=== PATIENT | male | born 1965 | race African-American/Black ===

== ENCOUNTER 2017-09-30 20:38 | Inpatient (IN) | payer BC ==
[2017-09-30] MEDS: DIAZEPAM 5 MG/ML SYG IM (23:14)
[2017-09-30] MEDS: KETOROLAC 60 MG INJ IM (23:14)
[2017-10-01 00:41] LABS: ADD MAN DIFF? NO
[2017-10-01 00:45] LABS: WHITE BLOOD COUNT 9.1 10^3/ul (4.8-10.8)
[2017-10-01 00:45] LABS: BASOPHILS % 0.3 % (0.0-2.0); EOSINOPHILS # 0.5 10^3/ul (0.0-0.5); HEMATOCRIT 38.5 % (42.0-52.0); HEMOGLOBIN 12.4 g/dl (14.0-18.0); LYMPHOCYTES % 21.6 % (15.0-51.0); MEAN CORPUSCULAR HEMOGLOBIN 30.7 pg (29.0-33.0); MEAN CORPUSCULAR HGB CONC 32.2 g/dl (32.0-37.0); MEAN CORPUSCULAR VOLUME 95.3 fl (82.0-101.0); MEAN PLATELET VOLUME 8.6 fl (7.4-10.4); MONOCYTE # 1.1 10^3/ul (0.3-0.9); NEUTROPHIL # 5.5 10^3/ul (1.6-7.5); NEUTROPHILS % 60.6 % (39.0-77.0); PLATELET COUNT 364 10^3/UL (140-415); RED BLOOD COUNT 4.04 10^6/ul (4.70-6.10); RED CELL DISTRIBUTION WIDTH 12.9 % (11.5-14.5)
[2017-10-01 01:02] LABS: ALANINE AMINOTRANSFERASE 41 IU/L (13-69); ALBUMIN 3.6 g/dl (3.3-4.9); ALBUMIN/GLOBULIN RATIO 0.97; ALKALINE PHOSPHATASE 145 IU/L (42-121); ANION GAP 12 (8-16); ASPARTATE AMINO TRANSFERASE 34 IU/L (15-46); BILIRUBIN,INDIRECT 0.2 mg/dl (0-1.1); BILIRUBIN,TOTAL 0.2 mg/dl (0.2-1.3); BLOOD UREA NITROGEN 11 mg/dl (7-20); CALCIUM 9.1 mg/dl (8.4-10.2); CARBON DIOXIDE 30 mmol/L (21-31); CHLORIDE 104 mmol/L (97-110); CREATININE 0.83 mg/dl (0.61-1.24); GLUCOSE 121 mg/dl (70-220); POTASSIUM 3.9 mmol/L (3.5-5.1); SODIUM 142 mmol/L (135-144); TOTAL PROTEIN 7.3 g/dl (6.1-8.1)
[2017-10-01 01:09] LABS: INR 1.09; PROTIME 14.2 Sec (11.9-14.9); PT RATIO 1.1
[2017-10-01] MEDS ORDERED: ACETAMINOPHEN 325 MG TAB PO (02:00)
[2017-10-01] MEDS: morphine 2 MG INJ IV ×4 (02:27→15:28)
[2017-10-01] MEDS ORDERED: DOCUSATE SODIUM 100 MG CAP PO (07:00)
[2017-10-01] MEDS: ASPIRIN 81 MG TAB PO (08:51)
[2017-10-01] MEDS: FLUOXETINE 20 MG CAP PO (08:51)
[2017-10-01] MEDS: FUROSEMIDE 20 MG TAB PO (08:51)
[2017-10-01] MEDS: QUETIAPINE 25 MG TAB PO ×2 (08:51→21:44)
[2017-10-01] MEDS: LISINOPRIL 5 MG TAB PO (08:51)
[2017-10-01] MEDS: BUDESONIDE (NEB) 0.5MG/2ML AMP INH ×3 (08:55→19:30)
[2017-10-01] MEDS: IBUPROFEN 600 MG TAB PO (17:37)
[2017-10-01] MEDS: HYDROmorphONE 0.5 MG/0.5 ML SYG IV ×3 (18:53→23:40)
[2017-10-01] MEDS: BUPIVACAINE 0.5%/EPI (SDV) 30 ML INJ INJ (20:30)
[2017-10-01] MEDS: BETAMET NA PHOS/AC(6 MG/ML) 5ML INJ INJ (20:30)
[2017-10-01] MEDS: ATORVASTATIN 20 MG TAB PO (21:00)
[2017-10-02] MEDS: HYDROmorphONE 1 MG/ML SYG IV ×5 (06:23→23:19)
[2017-10-02] MEDS: BUDESONIDE (NEB) 0.5MG/2ML AMP INH ×2 (08:30→20:29)
[2017-10-02] MEDS: FLUOXETINE 20 MG CAP PO (08:58)
[2017-10-02] MEDS: QUETIAPINE 25 MG TAB PO ×2 (08:58→21:03)
[2017-10-02] MEDS: LISINOPRIL 5 MG TAB PO (08:58)
[2017-10-02] MEDS: FUROSEMIDE 20 MG TAB PO (08:58)
[2017-10-02] MEDS: ASPIRIN 81 MG TAB PO (08:58)
[2017-10-02 14:24] LABS: ADD MAN DIFF? NO
[2017-10-02 14:27] LABS: BASOPHILS % 0.1 % (0.0-2.0); HEMATOCRIT 37.1 % (42.0-52.0); HEMOGLOBIN 12.2 g/dl (14.0-18.0); LYMPHOCYTES # 1.2 10^3/ul (0.8-2.9); LYMPHOCYTES % 6.9 % (15.0-51.0); MEAN CORPUSCULAR HEMOGLOBIN 30.7 pg (29.0-33.0); MEAN CORPUSCULAR HGB CONC 32.9 g/dl (32.0-37.0); MEAN CORPUSCULAR VOLUME 93.2 fl (82.0-101.0); MEAN PLATELET VOLUME 9.4 fl (7.4-10.4); MONOCYTE # 0.9 10^3/ul (0.3-0.9); MONOCYTES % 5.3 % (0.0-11.0); NEUTROPHILS % 86.8 % (39.0-77.0); PLATELET COUNT 416 10^3/UL (140-415); RED BLOOD COUNT 3.98 10^6/ul (4.70-6.10); RED CELL DISTRIBUTION WIDTH 12.7 % (11.5-14.5)
[2017-10-02 14:27] LABS: WHITE BLOOD COUNT 17.2 10^3/ul (4.8-10.8)
[2017-10-02 14:46] LABS: ANION GAP 14 (8-16); BLOOD UREA NITROGEN 13 mg/dl (7-20); CALCIUM 9.3 mg/dl (8.4-10.2); CARBON DIOXIDE 24 mmol/L (21-31); CHLORIDE 106 mmol/L (97-110); CREATININE 0.81 mg/dl (0.61-1.24); GLUCOSE 180 mg/dl (70-220); POTASSIUM 4.4 mmol/L (3.5-5.1); SODIUM 140 mmol/L (135-144)
[2017-10-02] MEDS: ATORVASTATIN 20 MG TAB PO (21:03)
[2017-10-03] MEDS: HYDROmorphONE 0.5 MG/0.5 ML SYG IV (03:30)
[2017-10-03] MEDS: HYDROmorphONE 1 MG/ML SYG IV ×5 (07:40→23:48)
[2017-10-03] MEDS: BUDESONIDE (NEB) 0.5MG/2ML AMP INH ×2 (08:21→20:11)
[2017-10-03 08:58] LABS: ADD MAN DIFF? NO
[2017-10-03] MEDS: LISINOPRIL 5 MG TAB PO (09:05)
[2017-10-03] MEDS: ASPIRIN 81 MG TAB PO (09:06)
[2017-10-03] MEDS: FUROSEMIDE 20 MG TAB PO (09:06)
[2017-10-03] MEDS: QUETIAPINE 25 MG TAB PO ×2 (09:06→20:27)
[2017-10-03] MEDS: FLUOXETINE 20 MG CAP PO (09:06)
[2017-10-03 09:10] LABS: ABNORMAL IP MESSAGE 1; BASOPHILS % 0.1 % (0.0-2.0); HEMATOCRIT 38.1 % (42.0-52.0); HEMOGLOBIN 12.1 g/dl (14.0-18.0); LYMPHOCYTES # 1.8 10^3/ul (0.8-2.9); LYMPHOCYTES % 7.4 % (15.0-51.0); MEAN CORPUSCULAR HEMOGLOBIN 30.1 pg (29.0-33.0); MEAN CORPUSCULAR HGB CONC 31.8 g/dl (32.0-37.0); MEAN CORPUSCULAR VOLUME 94.8 fl (82.0-101.0); MEAN PLATELET VOLUME 9.6 fl (7.4-10.4); MONOCYTES % 8.4 % (0.0-11.0); NEUTROPHIL # 19.7 10^3/ul (1.6-7.5); NEUTROPHILS % 82.8 % (39.0-77.0); PLATELET COUNT 446 10^3/UL (140-415); POSITIVE DIFF @See below; RED BLOOD COUNT 4.02 10^6/ul (4.70-6.10)
[2017-10-03 09:10] LABS: WHITE BLOOD COUNT 23.8 10^3/ul (4.8-10.8)
[2017-10-03 09:35] LABS: ANION GAP 17 (8-16); BLOOD UREA NITROGEN 14 mg/dl (7-20); CALCIUM 9.1 mg/dl (8.4-10.2); CARBON DIOXIDE 23 mmol/L (21-31); CHLORIDE 106 mmol/L (97-110); CREATININE 0.72 mg/dl (0.61-1.24); GLUCOSE 130 mg/dl (70-220); POTASSIUM 4.6 mmol/L (3.5-5.1); SODIUM 141 mmol/L (135-144)
[2017-10-03] MEDS ORDERED: GABAPENTIN 100 MG CAP PO (12:00)
[2017-10-03] MEDS: GABAPENTIN 100 MG CAP PO ×3 (12:11→23:50)
[2017-10-03] MEDS: DICLOFENAC SODIUM 1% GEL 100 GM TUBE TP ×2 (18:06→20:28)
[2017-10-03] MEDS: LORAZEPAM 0.5 MG TAB PO (18:44)
[2017-10-03] MEDS: DOCUSATE SODIUM 100 MG CAP PO (20:27)
[2017-10-03] MEDS: ATORVASTATIN 20 MG TAB PO (20:28)
[2017-10-04] MEDS: HYDROmorphONE 1 MG/ML SYG IV ×5 (04:56→20:51)
[2017-10-04 05:51] LABS: ADD MAN DIFF? NO
[2017-10-04 05:56] LABS: ABNORMAL IP MESSAGE 1; BASOPHIL # 0.1 10^3/ul (0.0-0.1); BASOPHILS % 0.2 % (0.0-2.0); EOSINOPHILS % 0.1 % (0.0-7.0); HEMATOCRIT 37.9 % (42.0-52.0); LYMPHOCYTES # 2.2 10^3/ul (0.8-2.9); LYMPHOCYTES % 11.1 % (15.0-51.0); MEAN CORPUSCULAR HEMOGLOBIN 30.4 pg (29.0-33.0); MEAN CORPUSCULAR HGB CONC 31.7 g/dl (32.0-37.0); MEAN CORPUSCULAR VOLUME 95.9 fl (82.0-101.0); MEAN PLATELET VOLUME 9.3 fl (7.4-10.4); MONOCYTE # 2.4 10^3/ul (0.3-0.9); MONOCYTES % 11.8 % (0.0-11.0); NEUTROPHIL # 15.2 10^3/ul (1.6-7.5); NEUTROPHILS % 75.8 % (39.0-77.0); PLATELET COUNT 425 10^3/UL (140-415); POSITIVE DIFF @See below; RED BLOOD COUNT 3.95 10^6/ul (4.70-6.10)
[2017-10-04 06:15] LABS: ANION GAP 10 (8-16); BLOOD UREA NITROGEN 14 mg/dl (7-20); CALCIUM 8.7 mg/dl (8.4-10.2); CARBON DIOXIDE 30 mmol/L (21-31); CHLORIDE 104 mmol/L (97-110); CREATININE 0.71 mg/dl (0.61-1.24); GLUCOSE 155 mg/dl (70-220); POTASSIUM 4.1 mmol/L (3.5-5.1); SODIUM 140 mmol/L (135-144)
[2017-10-04] MEDS: GABAPENTIN 100 MG CAP PO ×3 (06:20→17:16)
[2017-10-04] MEDS: BUDESONIDE (NEB) 0.5MG/2ML AMP INH ×2 (08:00→19:07)
[2017-10-04] MEDS: QUETIAPINE 25 MG TAB PO ×2 (08:17→20:14)
[2017-10-04] MEDS: DOCUSATE SODIUM 100 MG CAP PO ×2 (08:17→20:14)
[2017-10-04] MEDS: FLUOXETINE 20 MG CAP PO (08:17)
[2017-10-04] MEDS: ASPIRIN 81 MG TAB PO (08:17)
[2017-10-04] MEDS: DICLOFENAC SODIUM 1% GEL 100 GM TUBE TP ×4 (08:18→20:14)
[2017-10-04] MEDS: LISINOPRIL 5 MG TAB PO (08:18)
[2017-10-04] MEDS: FUROSEMIDE 20 MG TAB PO (08:18)
[2017-10-04] MEDS ORDERED: HYDROCODONE/APAP (5/325) TAB PO (11:30)
[2017-10-04] MEDS: HYDROCODONE/APAP (5/325) TAB PO (19:38)
[2017-10-04] MEDS: ATORVASTATIN 20 MG TAB PO (20:14)
[2017-10-05] MEDS: GABAPENTIN 100 MG CAP PO ×4 (00:39→16:58)
[2017-10-05] MEDS: HYDROmorphONE 1 MG/ML SYG IV ×6 (00:39→20:48)
[2017-10-05] MEDS ORDERED: METHYLPREDNISOLONE (MEDROL) DOSE PACK PO (08:00)
[2017-10-05] MEDS: LISINOPRIL 5 MG TAB PO (08:26)
[2017-10-05] MEDS: ASPIRIN 81 MG TAB PO (08:27)
[2017-10-05] MEDS: QUETIAPINE 25 MG TAB PO ×2 (08:27→20:51)
[2017-10-05] MEDS: HYDROCODONE/APAP (5/325) TAB PO ×2 (08:27→22:43)
[2017-10-05] MEDS: DOCUSATE SODIUM 100 MG CAP PO ×2 (08:27→20:51)
[2017-10-05] MEDS: FUROSEMIDE 20 MG TAB PO (08:27)
[2017-10-05] MEDS: FLUOXETINE 20 MG CAP PO (08:27)
[2017-10-05] MEDS: DICLOFENAC SODIUM 1% GEL 100 GM TUBE TP ×4 (08:28→20:52)
[2017-10-05 09:13] LABS: ADD MAN DIFF? NO
[2017-10-05 09:20] LABS: ABNORMAL IP MESSAGE 1; BASOPHILS % 0.3 % (0.0-2.0); EOSINOPHILS # 0.2 10^3/ul (0.0-0.5); EOSINOPHILS % 1.1 % (0.0-7.0); HEMATOCRIT 38.7 % (42.0-52.0); HEMOGLOBIN 12.4 g/dl (14.0-18.0); LYMPHOCYTES # 2.9 10^3/ul (0.8-2.9); LYMPHOCYTES % 19.3 % (15.0-51.0); MEAN CORPUSCULAR HEMOGLOBIN 30.7 pg (29.0-33.0); MEAN CORPUSCULAR VOLUME 95.8 fl (82.0-101.0); MEAN PLATELET VOLUME 9.1 fl (7.4-10.4); MONOCYTE # 2.1 10^3/ul (0.3-0.9); MONOCYTES % 14.1 % (0.0-11.0); NEUTROPHIL # 9.6 10^3/ul (1.6-7.5); NEUTROPHILS % 64.1 % (39.0-77.0); PLATELET COUNT 397 10^3/UL (140-415); POSITIVE DIFF @See below; RED BLOOD COUNT 4.04 10^6/ul (4.70-6.10); RED CELL DISTRIBUTION WIDTH 13.2 % (11.5-14.5)
[2017-10-05 09:36] LABS: ANION GAP 10 (8-16); BLOOD UREA NITROGEN 15 mg/dl (7-20); CALCIUM 8.9 mg/dl (8.4-10.2); CARBON DIOXIDE 33 mmol/L (21-31); CHLORIDE 102 mmol/L (97-110); CREATININE 0.95 mg/dl (0.61-1.24); GLUCOSE 102 mg/dl (70-220); POTASSIUM 4.6 mmol/L (3.5-5.1); SODIUM 140 mmol/L (135-144)
[2017-10-05] MEDS: BUDESONIDE (NEB) 0.5MG/2ML AMP INH ×2 (10:02→20:04)
[2017-10-05] MEDS: LORAZEPAM 0.5 MG TAB PO (10:32)
[2017-10-05] MEDS: METHYLPREDNISOLONE 4 MG TAB PO (10:33)
[2017-10-05] MEDS: HYDROmorphONE 0.5 MG/0.5 ML SYG IV ×2 (18:46→22:43)
[2017-10-05] MEDS: ATORVASTATIN 20 MG TAB PO (20:51)
[2017-10-06] MEDS: HYDROmorphONE 1 MG/ML SYG IV ×4 (00:56→09:00)
[2017-10-06] MEDS: HYDROmorphONE 0.5 MG/0.5 ML SYG IV (02:53)
[2017-10-06] MEDS: GABAPENTIN 100 MG CAP PO ×5 (05:02→17:01)
[2017-10-06] MEDS: HYDROCODONE/APAP (5/325) TAB PO ×3 (06:35→15:32)
[2017-10-06] MEDS: BUDESONIDE (NEB) 0.5MG/2ML AMP INH ×2 (07:47→20:30)
[2017-10-06] MEDS: ASPIRIN 81 MG TAB PO (08:58)
[2017-10-06] MEDS: FLUOXETINE 20 MG CAP PO (08:58)
[2017-10-06] MEDS: LISINOPRIL 5 MG TAB PO (08:59)
[2017-10-06] MEDS: FUROSEMIDE 20 MG TAB PO (08:59)
[2017-10-06] MEDS: METHYLPREDNISOLONE 4 MG TAB PO ×4 (08:59→20:40)
[2017-10-06] MEDS: DICLOFENAC SODIUM 1% GEL 100 GM TUBE TP ×4 (08:59→20:41)
[2017-10-06] MEDS: QUETIAPINE 25 MG TAB PO ×2 (08:59→20:39)
[2017-10-06] MEDS: DOCUSATE SODIUM 100 MG CAP PO ×2 (09:00→20:39)
[2017-10-06] MEDS: HYDROmorphONE 2 MG/ML SYG IV ×3 (12:58→21:01)
[2017-10-06] MEDS: ATORVASTATIN 20 MG TAB PO (20:39)
[2017-10-07] MEDS: HYDROmorphONE 2 MG/ML SYG IV ×6 (01:02→21:31)
[2017-10-07] MEDS: GABAPENTIN 100 MG CAP PO ×4 (06:12→18:43)
[2017-10-07] MEDS: DICLOFENAC SODIUM 1% GEL 100 GM TUBE TP ×4 (09:06→21:00)
[2017-10-07] MEDS: ASPIRIN 81 MG TAB PO (09:06)
[2017-10-07] MEDS: FLUOXETINE 20 MG CAP PO (09:07)
[2017-10-07] MEDS: LISINOPRIL 5 MG TAB PO (09:07)
[2017-10-07] MEDS: QUETIAPINE 25 MG TAB PO ×2 (09:08→21:29)
[2017-10-07] MEDS: FUROSEMIDE 20 MG TAB PO (09:08)
[2017-10-07] MEDS: DOCUSATE SODIUM 100 MG CAP PO ×2 (09:09→21:30)
[2017-10-07] MEDS: METHYLPREDNISOLONE 4 MG TAB PO ×4 (09:44→21:33)
[2017-10-07] MEDS: BUDESONIDE (NEB) 0.5MG/2ML AMP INH ×2 (11:24→19:48)
[2017-10-07] MEDS: HYDROCODONE/APAP (5/325) TAB PO (15:29)
[2017-10-07] MEDS: ATORVASTATIN 20 MG TAB PO (21:30)
[2017-10-08] MEDS: HYDROmorphONE 2 MG/ML SYG IV ×6 (01:44→21:43)
[2017-10-08 05:39] LABS: ADD MAN DIFF? NO
[2017-10-08 05:43] LABS: WHITE BLOOD COUNT 18.7 10^3/ul (4.8-10.8)
[2017-10-08 05:43] LABS: ABNORMAL IP MESSAGE 1; BASOPHILS % 0.2 % (0.0-2.0); EOSINOPHILS # 0.1 10^3/ul (0.0-0.5); EOSINOPHILS % 0.8 % (0.0-7.0); HEMATOCRIT 40.6 % (42.0-52.0); LYMPHOCYTES # 2.4 10^3/ul (0.8-2.9); MEAN CORPUSCULAR HEMOGLOBIN 30.7 pg (29.0-33.0); MEAN PLATELET VOLUME 9.4 fl (7.4-10.4); MONOCYTE # 1.9 10^3/ul (0.3-0.9); MONOCYTES % 10.1 % (0.0-11.0); NEUTROPHILS % 75.1 % (39.0-77.0); PLATELET COUNT 456 10^3/UL (140-415); POSITIVE DIFF @See below; RED BLOOD COUNT 4.23 10^6/ul (4.70-6.10); RED CELL DISTRIBUTION WIDTH 13.2 % (11.5-14.5)
[2017-10-08] MEDS: GABAPENTIN 100 MG CAP PO ×5 (05:49→23:42)
[2017-10-08 06:25] LABS: ANION GAP 11 (8-16); BLOOD UREA NITROGEN 14 mg/dl (7-20); CALCIUM 8.6 mg/dl (8.4-10.2); CARBON DIOXIDE 31 mmol/L (21-31); CHLORIDE 101 mmol/L (97-110); CREATININE 0.71 mg/dl (0.61-1.24); GLUCOSE 160 mg/dl (70-220); POTASSIUM 4.4 mmol/L (3.5-5.1); SODIUM 139 mmol/L (135-144)
[2017-10-08] MEDS: METHYLPREDNISOLONE 4 MG TAB PO ×3 (08:11→21:42)
[2017-10-08] MEDS: DOCUSATE SODIUM 100 MG CAP PO ×2 (08:19→21:00)
[2017-10-08] MEDS: HYDROCODONE/APAP (5/325) TAB PO ×3 (08:19→23:42)
[2017-10-08] MEDS: ASPIRIN 81 MG TAB PO (08:19)
[2017-10-08] MEDS: FUROSEMIDE 20 MG TAB PO (08:19)
[2017-10-08] MEDS: FLUOXETINE 20 MG CAP PO (08:19)
[2017-10-08] MEDS: LISINOPRIL 5 MG TAB PO (08:19)
[2017-10-08] MEDS: DICLOFENAC SODIUM 1% GEL 100 GM TUBE TP ×4 (08:20→21:00)
[2017-10-08] MEDS: QUETIAPINE 25 MG TAB PO ×2 (08:20→21:42)
[2017-10-08] MEDS: BUDESONIDE (NEB) 0.5MG/2ML AMP INH ×2 (09:04→19:40)
[2017-10-08] MEDS: ATORVASTATIN 20 MG TAB PO (21:42)
[2017-10-09] MEDS: HYDROmorphONE 2 MG/ML SYG IV ×6 (01:46→22:08)
[2017-10-09] MEDS: HYDROCODONE/APAP (5/325) TAB PO ×4 (04:08→21:30)
[2017-10-09] MEDS: GABAPENTIN 100 MG CAP PO ×3 (05:46→17:43)
[2017-10-09] MEDS: DOCUSATE SODIUM 100 MG CAP PO ×2 (08:43→21:30)
[2017-10-09] MEDS: ASPIRIN 81 MG TAB PO (08:43)
[2017-10-09] MEDS: METHYLPREDNISOLONE 4 MG TAB PO ×2 (08:43→21:30)
[2017-10-09] MEDS: FLUOXETINE 20 MG CAP PO (08:43)
[2017-10-09] MEDS: QUETIAPINE 25 MG TAB PO ×2 (08:44→21:30)
[2017-10-09] MEDS: FUROSEMIDE 20 MG TAB PO (08:44)
[2017-10-09] MEDS: LISINOPRIL 5 MG TAB PO (08:44)
[2017-10-09] MEDS: DICLOFENAC SODIUM 1% GEL 100 GM TUBE TP ×4 (08:52→21:00)
[2017-10-09] MEDS: BUDESONIDE (NEB) 0.5MG/2ML AMP INH ×2 (09:30→20:32)
[2017-10-09] MEDS: ATORVASTATIN 20 MG TAB PO (21:29)
[2017-10-10] MEDS: GABAPENTIN 100 MG CAP PO ×4 (00:51→17:48)
[2017-10-10] MEDS: HYDROmorphONE 2 MG/ML SYG IV ×4 (04:12→16:29)
[2017-10-10] MEDS: HYDROCODONE/APAP (5/325) TAB PO (06:18)
[2017-10-10] MEDS: METHYLPREDNISOLONE 4 MG TAB PO (08:25)
[2017-10-10] MEDS: DOCUSATE SODIUM 100 MG CAP PO ×2 (08:25→20:30)
[2017-10-10] MEDS: ASPIRIN 81 MG TAB PO (08:25)
[2017-10-10] MEDS: FLUOXETINE 20 MG CAP PO (08:25)
[2017-10-10] MEDS: LISINOPRIL 5 MG TAB PO (08:26)
[2017-10-10] MEDS: QUETIAPINE 25 MG TAB PO ×2 (08:26→20:30)
[2017-10-10] MEDS: FUROSEMIDE 20 MG TAB PO (08:26)
[2017-10-10] MEDS: DICLOFENAC SODIUM 1% GEL 100 GM TUBE TP ×4 (08:28→20:39)
[2017-10-10] MEDS: BUDESONIDE (NEB) 0.5MG/2ML AMP INH ×2 (09:49→21:06)
[2017-10-10] MEDS: ATORVASTATIN 20 MG TAB PO (20:30)
[2017-10-10] MEDS: HYDROmorphONE 2 MG TAB PO (20:36)
[2017-10-10] MEDS: LORAZEPAM 0.5 MG TAB PO (23:29)
[2017-10-11] MEDS: GABAPENTIN 100 MG CAP PO ×4 (00:14→17:34)
[2017-10-11] MEDS: QUETIAPINE 25 MG TAB PO ×3 (08:45→20:42)
[2017-10-11] MEDS: FLUOXETINE 20 MG CAP PO ×2 (08:45→09:27)
[2017-10-11] MEDS: DOCUSATE SODIUM 100 MG CAP PO ×3 (08:46→20:42)
[2017-10-11] MEDS: LISINOPRIL 5 MG TAB PO ×2 (08:46→09:28)
[2017-10-11] MEDS: ASPIRIN 81 MG TAB PO ×2 (08:46→09:27)
[2017-10-11] MEDS: FUROSEMIDE 20 MG TAB PO ×2 (08:46→09:28)
[2017-10-11] MEDS: BUDESONIDE (NEB) 0.5MG/2ML AMP INH ×2 (08:55→20:36)
[2017-10-11] MEDS: DICLOFENAC SODIUM 1% GEL 100 GM TUBE TP ×4 (09:28→20:50)
[2017-10-11] MEDS: NITROGLYCERIN (SL) 0.4 MG TAB SL (11:24)
[2017-10-11 13:55] LABS: TROPONIN-I 0.021 ng/ml (0.000-0.120)
[2017-10-11] MEDS: HYDROmorphONE 2 MG TAB PO ×2 (15:09→23:29)
[2017-10-11 19:20] LABS: TROPONIN-I < 0.012 ng/ml (0.000-0.120)
[2017-10-11] MEDS: ATORVASTATIN 20 MG TAB PO (20:42)
[2017-10-12] MEDS: HYDROCODONE/APAP (5/325) TAB PO ×3 (01:28→20:35)
[2017-10-12] MEDS: LORAZEPAM 0.5 MG TAB PO ×2 (02:47→21:54)
[2017-10-12] MEDS: GABAPENTIN 100 MG CAP PO ×4 (06:00→17:05)
[2017-10-12] MEDS: BUDESONIDE (NEB) 0.5MG/2ML AMP INH ×2 (08:44→19:45)
[2017-10-12] MEDS: ASPIRIN 81 MG TAB PO (08:49)
[2017-10-12] MEDS: QUETIAPINE 25 MG TAB PO ×2 (08:49→20:36)
[2017-10-12] MEDS: LISINOPRIL 5 MG TAB PO (08:49)
[2017-10-12] MEDS: FUROSEMIDE 20 MG TAB PO (08:49)
[2017-10-12] MEDS: FLUOXETINE 20 MG CAP PO (08:49)
[2017-10-12] MEDS: DOCUSATE SODIUM 100 MG CAP PO ×2 (08:49→20:35)
[2017-10-12] MEDS: HYDROmorphONE 2 MG TAB PO ×3 (08:50→21:23)
[2017-10-12] MEDS: DICLOFENAC SODIUM 1% GEL 100 GM TUBE TP ×4 (14:00→21:00)
[2017-10-12 14:13] LABS: ADD MAN DIFF? NO
[2017-10-12 14:15] LABS: WHITE BLOOD COUNT 10.6 10^3/ul (4.8-10.8)
[2017-10-12 14:15] LABS: BASOPHILS % 0.1 % (0.0-2.0); EOSINOPHILS # 0.3 10^3/ul (0.0-0.5); EOSINOPHILS % 2.6 % (0.0-7.0); HEMATOCRIT 41.7 % (42.0-52.0); HEMOGLOBIN 13.4 g/dl (14.0-18.0); LYMPHOCYTES # 2.6 10^3/ul (0.8-2.9); LYMPHOCYTES % 24.2 % (15.0-51.0); MEAN CORPUSCULAR HGB CONC 32.1 g/dl (32.0-37.0); MEAN CORPUSCULAR VOLUME 96.5 fl (82.0-101.0); MEAN PLATELET VOLUME 8.9 fl (7.4-10.4); MONOCYTE # 1.1 10^3/ul (0.3-0.9); MONOCYTES % 10.8 % (0.0-11.0); NEUTROPHIL # 6.5 10^3/ul (1.6-7.5); NEUTROPHILS % 61.4 % (39.0-77.0); PLATELET COUNT 457 10^3/UL (140-415); RED BLOOD COUNT 4.32 10^6/ul (4.70-6.10); RED CELL DISTRIBUTION WIDTH 13.3 % (11.5-14.5)
[2017-10-12 14:36] LABS: ANION GAP 14 (8-16); BLOOD UREA NITROGEN 19 mg/dl (7-20); CALCIUM 8.9 mg/dl (8.4-10.2); CARBON DIOXIDE 30 mmol/L (21-31); CHLORIDE 102 mmol/L (97-110); CREATININE 1.04 mg/dl (0.61-1.24); GLUCOSE 132 mg/dl (70-220); POTASSIUM 4.7 mmol/L (3.5-5.1); SODIUM 141 mmol/L (135-144)
[2017-10-12 14:37] LABS: CHOLESTEROL 162 mg/dl (100-200)
[2017-10-12 14:37] LABS: HDL CHOLESTEROL 53 mg/dl (28-71); LDL CHOLESTEROL,CALCULATED 50 mg/dl; TRIGLYCERIDES 297 mg/dl (0-149)
[2017-10-12 14:47] LABS: TROPONIN-I < 0.012 ng/ml (0.000-0.120)
[2017-10-12] MEDS: ATORVASTATIN 20 MG TAB PO (20:35)
[2017-10-13] MEDS: HYDROCODONE/APAP (5/325) TAB PO ×3 (00:31→17:37)
[2017-10-13] MEDS: GABAPENTIN 100 MG CAP PO ×5 (00:31→17:36)
[2017-10-13] MEDS: HYDROmorphONE 2 MG TAB PO ×4 (06:19→21:26)
[2017-10-13] MEDS: LISINOPRIL 5 MG TAB PO (08:52)
[2017-10-13] MEDS: ASPIRIN 81 MG TAB PO (08:52)
[2017-10-13] MEDS: FLUOXETINE 20 MG CAP PO (08:52)
[2017-10-13] MEDS: QUETIAPINE 25 MG TAB PO ×2 (08:52→21:28)
[2017-10-13] MEDS: DICLOFENAC SODIUM 1% GEL 100 GM TUBE TP ×4 (08:53→21:26)
[2017-10-13] MEDS: DOCUSATE SODIUM 100 MG CAP PO ×2 (08:53→21:29)
[2017-10-13] MEDS: FUROSEMIDE 20 MG TAB PO (08:53)
[2017-10-13] MEDS: BUDESONIDE (NEB) 0.5MG/2ML AMP INH ×2 (09:00→20:57)
[2017-10-13] MEDS ORDERED: VITAMIN A & D 5 GM OINT PACKET TOP (12:35)
[2017-10-13] MEDS: AL HYDROX/MG HYDROX/SIMETH 30 ML CUP PO (17:39)
[2017-10-13] MEDS: ATORVASTATIN 20 MG TAB PO (21:29)
[2017-10-14] MEDS: HYDROmorphONE 2 MG TAB PO ×5 (01:29→21:09)
[2017-10-14] MEDS: GABAPENTIN 100 MG CAP PO ×5 (05:39→23:53)
[2017-10-14 06:34] LABS: ADD MAN DIFF? NO
[2017-10-14 06:38] LABS: WHITE BLOOD COUNT 10.3 10^3/ul (4.8-10.8)
[2017-10-14 06:38] LABS: BASOPHILS % 0.1 % (0.0-2.0); EOSINOPHILS # 0.3 10^3/ul (0.0-0.5); EOSINOPHILS % 3.1 % (0.0-7.0); HEMATOCRIT 36.8 % (42.0-52.0); HEMOGLOBIN 11.7 g/dl (14.0-18.0); LYMPHOCYTES # 1.9 10^3/ul (0.8-2.9); LYMPHOCYTES % 18.6 % (15.0-51.0); MEAN CORPUSCULAR HEMOGLOBIN 30.3 pg (29.0-33.0); MEAN CORPUSCULAR HGB CONC 31.8 g/dl (32.0-37.0); MEAN CORPUSCULAR VOLUME 95.3 fl (82.0-101.0); MEAN PLATELET VOLUME 9.5 fl (7.4-10.4); MONOCYTE # 1.1 10^3/ul (0.3-0.9); MONOCYTES % 10.9 % (0.0-11.0); NEUTROPHIL # 6.9 10^3/ul (1.6-7.5); NEUTROPHILS % 66.6 % (39.0-77.0); PLATELET COUNT 383 10^3/UL (140-415); RED BLOOD COUNT 3.86 10^6/ul (4.70-6.10); RED CELL DISTRIBUTION WIDTH 13.3 % (11.5-14.5)
[2017-10-14 07:13] LABS: ANION GAP 13 (8-16); BLOOD UREA NITROGEN 16 mg/dl (7-20); CALCIUM 8.3 mg/dl (8.4-10.2); CARBON DIOXIDE 29 mmol/L (21-31); CHLORIDE 104 mmol/L (97-110); CREATININE 0.86 mg/dl (0.61-1.24); GLUCOSE 133 mg/dl (70-220); SODIUM 142 mmol/L (135-144)
[2017-10-14] MEDS: BUDESONIDE (NEB) 0.5MG/2ML AMP INH ×2 (08:05→20:32)
[2017-10-14] MEDS: HYDROCODONE/APAP (5/325) TAB PO ×4 (08:57→23:53)
[2017-10-14] MEDS: FLUOXETINE 20 MG CAP PO (08:57)
[2017-10-14] MEDS: ASPIRIN 81 MG TAB PO (08:57)
[2017-10-14] MEDS: DICLOFENAC SODIUM 1% GEL 100 GM TUBE TP ×4 (08:57→20:23)
[2017-10-14] MEDS: DOCUSATE SODIUM 100 MG CAP PO ×2 (09:00→20:23)
[2017-10-14] MEDS: QUETIAPINE 25 MG TAB PO ×2 (09:01→20:23)
[2017-10-14] MEDS: FUROSEMIDE 20 MG TAB PO (09:01)
[2017-10-14] MEDS: LISINOPRIL 5 MG TAB PO (09:01)
[2017-10-14] MEDS: ATORVASTATIN 20 MG TAB PO (20:23)
[2017-10-15 05:26] LABS: ADD MAN DIFF? NO
[2017-10-15 05:28] LABS: WHITE BLOOD COUNT 8.7 10^3/ul (4.8-10.8)
[2017-10-15 05:28] LABS: BASOPHILS % 0.1 % (0.0-2.0); EOSINOPHILS # 0.3 10^3/ul (0.0-0.5); EOSINOPHILS % 3.1 % (0.0-7.0); HEMATOCRIT 36.6 % (42.0-52.0); HEMOGLOBIN 11.7 g/dl (14.0-18.0); LYMPHOCYTES # 1.7 10^3/ul (0.8-2.9); LYMPHOCYTES % 19.3 % (15.0-51.0); MEAN CORPUSCULAR HEMOGLOBIN 30.6 pg (29.0-33.0); MEAN CORPUSCULAR VOLUME 95.8 fl (82.0-101.0); MONOCYTES % 11.7 % (0.0-11.0); NEUTROPHIL # 5.6 10^3/ul (1.6-7.5); NEUTROPHILS % 65.1 % (39.0-77.0); PLATELET COUNT 363 10^3/UL (140-415); RED BLOOD COUNT 3.82 10^6/ul (4.70-6.10); RED CELL DISTRIBUTION WIDTH 13.2 % (11.5-14.5)
[2017-10-15] MEDS: GABAPENTIN 100 MG CAP PO ×3 (06:00→17:09)
[2017-10-15 06:19] LABS: ANION GAP 9 (8-16); BLOOD UREA NITROGEN 14 mg/dl (7-20); CALCIUM 8.8 mg/dl (8.4-10.2); CARBON DIOXIDE 33 mmol/L (21-31); CHLORIDE 102 mmol/L (97-110); GLUCOSE 115 mg/dl (70-220); POTASSIUM 4.6 mmol/L (3.5-5.1); SODIUM 139 mmol/L (135-144)
[2017-10-15] MEDS: HYDROmorphONE 2 MG TAB PO ×3 (06:35→20:37)
[2017-10-15] MEDS: ASPIRIN 81 MG TAB PO (08:27)
[2017-10-15] MEDS: FLUOXETINE 20 MG CAP PO (08:27)
[2017-10-15] MEDS: DOCUSATE SODIUM 100 MG CAP PO ×2 (08:27→20:37)
[2017-10-15] MEDS: QUETIAPINE 25 MG TAB PO ×2 (08:27→20:37)
[2017-10-15] MEDS: DICLOFENAC SODIUM 1% GEL 100 GM TUBE TP ×4 (08:28→20:37)
[2017-10-15] MEDS: LISINOPRIL 5 MG TAB PO (08:28)
[2017-10-15] MEDS: FUROSEMIDE 20 MG TAB PO (08:28)
[2017-10-15] MEDS: HYDROCODONE/APAP (5/325) TAB PO (08:34)
[2017-10-15] MEDS: BUDESONIDE (NEB) 0.5MG/2ML AMP INH ×2 (09:24→20:11)
[2017-10-15] MEDS: LORAZEPAM 0.5 MG TAB PO (14:44)
[2017-10-15] MEDS: ATORVASTATIN 20 MG TAB PO (20:37)
[2017-10-16] MEDS: GABAPENTIN 100 MG CAP PO ×5 (00:08→23:47)
[2017-10-16] MEDS: HYDROmorphONE 1 MG/ML SYG IV ×8 (00:08→23:47)
[2017-10-16] MEDS: ASPIRIN 81 MG TAB PO (08:44)
[2017-10-16] MEDS: QUETIAPINE 25 MG TAB PO ×2 (08:44→20:36)
[2017-10-16] MEDS: DOCUSATE SODIUM 100 MG CAP PO ×2 (08:45→20:36)
[2017-10-16] MEDS: FLUOXETINE 20 MG CAP PO (08:45)
[2017-10-16] MEDS: LISINOPRIL 5 MG TAB PO (08:45)
[2017-10-16] MEDS: DICLOFENAC SODIUM 1% GEL 100 GM TUBE TP ×4 (08:45→20:37)
[2017-10-16] MEDS: FUROSEMIDE 20 MG TAB PO (08:45)
[2017-10-16] MEDS: BUDESONIDE (NEB) 0.5MG/2ML AMP INH ×2 (08:50→20:14)
[2017-10-16 16:43] LABS: B-TYPE NATRIURETIC PEPTIDE 40 PG/ML (0-125)
[2017-10-16] MEDS: ATORVASTATIN 20 MG TAB PO (20:36)
[2017-10-16] MEDS: LORAZEPAM 0.5 MG TAB PO (22:18)
[2017-10-17] MEDS: HYDROmorphONE 1 MG/ML SYG IV ×5 (03:48→20:08)
[2017-10-17] MEDS: GABAPENTIN 100 MG CAP PO ×3 (05:04→17:54)
[2017-10-17 05:49] LABS: ADD MAN DIFF? NO
[2017-10-17 06:03] LABS: WHITE BLOOD COUNT 9.3 10^3/ul (4.8-10.8)
[2017-10-17 06:03] LABS: BASOPHILS % 0.2 % (0.0-2.0); EOSINOPHILS # 0.3 10^3/ul (0.0-0.5); EOSINOPHILS % 2.7 % (0.0-7.0); HEMOGLOBIN 11.8 g/dl (14.0-18.0); LYMPHOCYTES % 21.3 % (15.0-51.0); MEAN CORPUSCULAR HEMOGLOBIN 30.6 pg (29.0-33.0); MEAN CORPUSCULAR HGB CONC 31.9 g/dl (32.0-37.0); MEAN CORPUSCULAR VOLUME 95.9 fl (82.0-101.0); MEAN PLATELET VOLUME 9.4 fl (7.4-10.4); MONOCYTE # 1.3 10^3/ul (0.3-0.9); MONOCYTES % 13.6 % (0.0-11.0); NEUTROPHIL # 5.7 10^3/ul (1.6-7.5); NEUTROPHILS % 61.7 % (39.0-77.0); PLATELET COUNT 348 10^3/UL (140-415); RED BLOOD COUNT 3.86 10^6/ul (4.70-6.10); RED CELL DISTRIBUTION WIDTH 13.1 % (11.5-14.5)
[2017-10-17 06:13] LABS: ANION GAP 11 (8-16); BLOOD UREA NITROGEN 11 mg/dl (7-20); CARBON DIOXIDE 28 mmol/L (21-31); CHLORIDE 105 mmol/L (97-110); CREATININE 0.78 mg/dl (0.61-1.24); GLUCOSE 127 mg/dl (70-220); POTASSIUM 4.2 mmol/L (3.5-5.1); SODIUM 140 mmol/L (135-144)
[2017-10-17] MEDS: BUDESONIDE (NEB) 0.5MG/2ML AMP INH ×2 (08:21→20:08)
[2017-10-17] MEDS: ASPIRIN 81 MG TAB PO (08:38)
[2017-10-17] MEDS: FLUOXETINE 20 MG CAP PO (08:38)
[2017-10-17] MEDS: DOCUSATE SODIUM 100 MG CAP PO ×2 (08:39→20:53)
[2017-10-17] MEDS: FUROSEMIDE 20 MG TAB PO (08:39)
[2017-10-17] MEDS: LISINOPRIL 5 MG TAB PO (08:39)
[2017-10-17] MEDS: QUETIAPINE 25 MG TAB PO ×2 (08:40→20:53)
[2017-10-17] MEDS: LORAZEPAM 0.5 MG TAB PO ×2 (08:44→21:05)
[2017-10-17] MEDS: DICLOFENAC SODIUM 1% GEL 100 GM TUBE TP ×4 (09:00→20:55)
[2017-10-17] MEDS: HYDROCODONE/APAP (5/325) TAB PO (17:29)
[2017-10-17] MEDS: ATORVASTATIN 20 MG TAB PO ×2 (20:53→21:00)
[2017-10-17] MEDS: ALBUTEROL HFA 8 GM INHALER INH (21:03)
[2017-10-18] MEDS: HYDROmorphONE 1 MG/ML SYG IV ×6 (00:09→20:19)
[2017-10-18] MEDS: GABAPENTIN 100 MG CAP PO ×4 (05:17→17:53)
[2017-10-18] MEDS: HYDROCODONE/APAP (5/325) TAB PO ×2 (05:20→13:59)
[2017-10-18 06:12] LABS: ADD MAN DIFF? NO
[2017-10-18 06:13] LABS: BASOPHILS % 0.2 % (0.0-2.0); EOSINOPHILS # 0.3 10^3/ul (0.0-0.5); HEMATOCRIT 36.6 % (42.0-52.0); HEMOGLOBIN 11.5 g/dl (14.0-18.0); LYMPHOCYTES # 1.8 10^3/ul (0.8-2.9); LYMPHOCYTES % 18.3 % (15.0-51.0); MEAN CORPUSCULAR HEMOGLOBIN 30.3 pg (29.0-33.0); MEAN CORPUSCULAR HGB CONC 31.4 g/dl (32.0-37.0); MEAN CORPUSCULAR VOLUME 96.3 fl (82.0-101.0); MEAN PLATELET VOLUME 9.3 fl (7.4-10.4); MONOCYTE # 1.3 10^3/ul (0.3-0.9); NEUTROPHIL # 6.5 10^3/ul (1.6-7.5); PLATELET COUNT 365 10^3/UL (140-415); RED CELL DISTRIBUTION WIDTH 13.1 % (11.5-14.5)
[2017-10-18 06:58] LABS: ANION GAP 11 (8-16); BLOOD UREA NITROGEN 12 mg/dl (7-20); CARBON DIOXIDE 30 mmol/L (21-31); CHLORIDE 103 mmol/L (97-110); CREATININE 0.82 mg/dl (0.61-1.24); GLUCOSE 168 mg/dl (70-220); POTASSIUM 4.3 mmol/L (3.5-5.1); SODIUM 140 mmol/L (135-144)
[2017-10-18] MEDS: ASPIRIN 81 MG TAB PO (08:10)
[2017-10-18] MEDS: LISINOPRIL 5 MG TAB PO (08:11)
[2017-10-18] MEDS: FUROSEMIDE 20 MG TAB PO (08:11)
[2017-10-18] MEDS: LORAZEPAM 0.5 MG TAB PO (08:11)
[2017-10-18] MEDS: FLUOXETINE 20 MG CAP PO (08:11)
[2017-10-18] MEDS: DOCUSATE SODIUM 100 MG CAP PO ×2 (08:11→20:22)
[2017-10-18] MEDS: QUETIAPINE 25 MG TAB PO ×2 (08:15→20:23)
[2017-10-18] MEDS: DICLOFENAC SODIUM 1% GEL 100 GM TUBE TP ×4 (09:00→20:23)
[2017-10-18] MEDS: BUDESONIDE (NEB) 0.5MG/2ML AMP INH ×2 (09:02→19:31)
[2017-10-18] MEDS: ATORVASTATIN 20 MG TAB PO (20:22)
[2017-10-19] MEDS: HYDROmorphONE 1 MG/ML SYG IV ×6 (00:19→20:33)
[2017-10-19] MEDS: GABAPENTIN 100 MG CAP PO ×5 (05:42→23:20)
[2017-10-19] MEDS: BUDESONIDE (NEB) 0.5MG/2ML AMP INH ×2 (07:53→19:58)
[2017-10-19] MEDS: ASPIRIN 81 MG TAB PO (09:12)
[2017-10-19] MEDS: LORAZEPAM 0.5 MG TAB PO (09:12)
[2017-10-19] MEDS: FLUOXETINE 20 MG CAP PO (09:13)
[2017-10-19] MEDS: FUROSEMIDE 20 MG TAB PO (09:13)
[2017-10-19] MEDS: DOCUSATE SODIUM 100 MG CAP PO ×2 (09:13→20:32)
[2017-10-19] MEDS: QUETIAPINE 25 MG TAB PO ×2 (09:13→20:32)
[2017-10-19] MEDS: LISINOPRIL 5 MG TAB PO (09:14)
[2017-10-19] MEDS: DICLOFENAC SODIUM 1% GEL 100 GM TUBE TP ×4 (09:14→20:32)
[2017-10-19] MEDS: ATORVASTATIN 20 MG TAB PO (20:32)
[2017-10-19] MEDS: HYDROCODONE/APAP (5/325) TAB PO (23:20)
[2017-10-20] MEDS: HYDROmorphONE 1 MG/ML SYG IV ×6 (00:55→21:19)
[2017-10-20] MEDS: GABAPENTIN 100 MG CAP PO ×3 (05:00→17:17)
[2017-10-20] MEDS: BUDESONIDE (NEB) 0.5MG/2ML AMP INH ×2 (08:05→20:21)
[2017-10-20] MEDS: FLUOXETINE 20 MG CAP PO (09:04)
[2017-10-20] MEDS: FUROSEMIDE 20 MG TAB PO (09:04)
[2017-10-20] MEDS: QUETIAPINE 25 MG TAB PO ×2 (09:04→21:22)
[2017-10-20] MEDS: DOCUSATE SODIUM 100 MG CAP PO ×2 (09:04→21:00)
[2017-10-20] MEDS: ASPIRIN 81 MG TAB PO (09:04)
[2017-10-20] MEDS: LISINOPRIL 5 MG TAB PO (09:05)
[2017-10-20] MEDS: DICLOFENAC SODIUM 1% GEL 100 GM TUBE TP ×4 (09:05→21:00)
[2017-10-20] MEDS ORDERED: HYDROmorphONE 1 MG/ML SYG IM (17:00)
[2017-10-20] MEDS: ATORVASTATIN 20 MG TAB PO (21:22)
[2017-10-20] MEDS: HYDROCODONE/APAP (5/325) TAB PO (22:24)
[2017-10-21] MEDS: GABAPENTIN 100 MG CAP PO ×5 (00:44→20:19)
[2017-10-21] MEDS: HYDROmorphONE 1 MG/ML SYG IV ×6 (01:51→23:16)
[2017-10-21] MEDS: QUETIAPINE 25 MG TAB PO ×2 (08:22→20:19)
[2017-10-21] MEDS: FLUOXETINE 20 MG CAP PO (08:22)
[2017-10-21] MEDS: DOCUSATE SODIUM 100 MG CAP PO ×2 (08:22→20:19)
[2017-10-21] MEDS: ASPIRIN 81 MG TAB PO (08:22)
[2017-10-21] MEDS: LISINOPRIL 5 MG TAB PO (08:23)
[2017-10-21] MEDS: FUROSEMIDE 20 MG TAB PO (08:23)
[2017-10-21] MEDS: DICLOFENAC SODIUM 1% GEL 100 GM TUBE TP ×4 (08:25→20:19)
[2017-10-21] MEDS: BUDESONIDE (NEB) 0.5MG/2ML AMP INH ×2 (08:55→20:27)
[2017-10-21] MEDS: ATORVASTATIN 20 MG TAB PO (20:19)
[2017-10-22] MEDS: LORAZEPAM 0.5 MG TAB PO ×2 (01:10→21:08)
[2017-10-22] MEDS: HYDROCODONE/APAP (5/325) TAB PO (02:03)
[2017-10-22] MEDS: HYDROmorphONE 1 MG/ML SYG IV ×6 (03:17→23:09)
[2017-10-22] MEDS: GABAPENTIN 100 MG CAP PO ×3 (07:19→17:49)
[2017-10-22] MEDS: FUROSEMIDE 20 MG TAB PO (08:36)
[2017-10-22] MEDS: FLUOXETINE 20 MG CAP PO (08:36)
[2017-10-22] MEDS: DOCUSATE SODIUM 100 MG CAP PO ×2 (08:36→21:08)
[2017-10-22] MEDS: ASPIRIN 81 MG TAB PO (08:36)
[2017-10-22] MEDS: LISINOPRIL 5 MG TAB PO (08:36)
[2017-10-22] MEDS: BUDESONIDE (NEB) 0.5MG/2ML AMP INH ×2 (08:36→20:43)
[2017-10-22] MEDS: QUETIAPINE 25 MG TAB PO ×2 (08:37→21:08)
[2017-10-22] MEDS: DICLOFENAC SODIUM 1% GEL 100 GM TUBE TP ×4 (09:00→21:08)
[2017-10-22] MEDS: ATORVASTATIN 20 MG TAB PO (21:08)
[2017-10-23] MEDS: HYDROmorphONE 1 MG/ML SYG IV ×5 (03:43→23:29)
[2017-10-23] MEDS: GABAPENTIN 100 MG CAP PO ×5 (06:00→23:30)
[2017-10-23] MEDS: ASPIRIN 81 MG TAB PO (08:08)
[2017-10-23] MEDS: DOCUSATE SODIUM 100 MG CAP PO ×2 (08:08→21:25)
[2017-10-23] MEDS: QUETIAPINE 25 MG TAB PO ×2 (08:09→21:25)
[2017-10-23] MEDS: FUROSEMIDE 20 MG TAB PO (08:09)
[2017-10-23] MEDS: DICLOFENAC SODIUM 1% GEL 100 GM TUBE TP ×4 (08:09→21:26)
[2017-10-23] MEDS: FLUOXETINE 20 MG CAP PO (08:09)
[2017-10-23] MEDS: LISINOPRIL 5 MG TAB PO (08:10)
[2017-10-23] MEDS: BUDESONIDE (NEB) 0.5MG/2ML AMP INH ×2 (08:39→20:43)
[2017-10-23] MEDS: ALBUTEROL HFA 8 GM INHALER INH (09:05)
[2017-10-23] MEDS: ATORVASTATIN 20 MG TAB PO (21:00)
[2017-10-23] MEDS: AL HYDROX/MG HYDROX/SIMETH 30 ML CUP PO (21:34)
[2017-10-24] MEDS: HYDROmorphONE 1 MG/ML SYG IV ×2 (05:21→11:39)
[2017-10-24] MEDS: GABAPENTIN 100 MG CAP PO ×3 (05:22→17:22)
[2017-10-24] MEDS: PANTOPRAZOLE (EC) 40 MG TAB PO (05:22)
[2017-10-24] MEDS: ASPIRIN 81 MG TAB PO (08:54)
[2017-10-24] MEDS: DOCUSATE SODIUM 100 MG CAP PO ×2 (08:54→21:40)
[2017-10-24] MEDS: FLUOXETINE 20 MG CAP PO (08:54)
[2017-10-24] MEDS: QUETIAPINE 25 MG TAB PO ×2 (08:54→21:39)
[2017-10-24] MEDS: LISINOPRIL 5 MG TAB PO (08:55)
[2017-10-24] MEDS: DICLOFENAC SODIUM 1% GEL 100 GM TUBE TP ×4 (08:55→21:00)
[2017-10-24] MEDS: FUROSEMIDE 20 MG TAB PO (08:55)
[2017-10-24] MEDS: BUDESONIDE (NEB) 0.5MG/2ML AMP INH ×2 (10:18→19:30)
[2017-10-24] MEDS: LORAZEPAM 2 MG INJ IV (18:06)
[2017-10-24] MEDS: ATORVASTATIN 20 MG TAB PO (21:41)
[2017-10-24] MEDS: HYDROmorphONE 2 MG TAB PO (22:26)
[2017-10-25] MEDS: LORAZEPAM 2 MG INJ IV ×3 (00:33→18:05)
[2017-10-25] MEDS: HYDROmorphONE 2 MG TAB PO (04:51)
[2017-10-25] MEDS: PANTOPRAZOLE (EC) 40 MG TAB PO (06:51)
[2017-10-25] MEDS: GABAPENTIN 100 MG CAP PO ×5 (06:51→23:09)
[2017-10-25] MEDS: HYDROCODONE/APAP (5/325) TAB PO ×2 (07:45→23:29)
[2017-10-25] MEDS: BUDESONIDE (NEB) 0.5MG/2ML AMP INH ×3 (08:40→21:55)
[2017-10-25] MEDS: DICLOFENAC SODIUM 1% GEL 100 GM TUBE TP ×4 (09:00→20:51)
[2017-10-25] MEDS: FLUOXETINE 20 MG CAP PO (09:00)
[2017-10-25] MEDS: REGADENOSON 0.4 MG/5 ML SYG (11:07)
[2017-10-25] MEDS: ASPIRIN 81 MG TAB PO (12:40)
[2017-10-25] MEDS: DOCUSATE SODIUM 100 MG CAP PO ×2 (12:40→20:48)
[2017-10-25] MEDS: LISINOPRIL 5 MG TAB PO (12:40)
[2017-10-25] MEDS: QUETIAPINE 25 MG TAB PO ×2 (12:41→20:47)
[2017-10-25] MEDS: FUROSEMIDE 20 MG TAB PO (12:41)
[2017-10-25] MEDS: ATORVASTATIN 20 MG TAB PO (20:47)
[2017-10-26] MEDS: LORAZEPAM 2 MG INJ IV (01:04)
[2017-10-26] MEDS: PANTOPRAZOLE (EC) 40 MG TAB PO ×2 (05:27→11:47)
[2017-10-26] MEDS: GABAPENTIN 100 MG CAP PO ×4 (05:27→23:10)
[2017-10-26] MEDS: DOCUSATE SODIUM 100 MG CAP PO ×2 (08:19→20:08)
[2017-10-26] MEDS: LISINOPRIL 5 MG TAB PO (08:19)
[2017-10-26] MEDS: QUETIAPINE 25 MG TAB PO ×2 (08:19→20:08)
[2017-10-26] MEDS: ASPIRIN 81 MG TAB PO (08:19)
[2017-10-26] MEDS: FUROSEMIDE 20 MG TAB PO (08:20)
[2017-10-26] MEDS: FLUOXETINE 20 MG CAP PO (08:20)
[2017-10-26] MEDS: DICLOFENAC SODIUM 1% GEL 100 GM TUBE TP ×4 (08:20→20:09)
[2017-10-26] MEDS: LORAZEPAM 0.5 MG TAB PO (11:47)
[2017-10-26] MEDS: HYDROmorphONE 2 MG TAB PO ×2 (17:14→23:10)
[2017-10-26] MEDS: ATORVASTATIN 20 MG TAB PO (20:08)
[2017-10-26] MEDS: HYDROCODONE/APAP (5/325) TAB PO (20:45)
[2017-10-26] MEDS: BUDESONIDE (NEB) 0.5MG/2ML AMP INH (21:23)
[2017-10-27] MEDS: HYDROCODONE/APAP (5/325) TAB PO ×3 (01:26→22:39)
[2017-10-27] MEDS: PANTOPRAZOLE (EC) 40 MG TAB PO ×2 (06:00)
[2017-10-27] MEDS: GABAPENTIN 100 MG CAP PO ×3 (06:00→17:51)
[2017-10-27] MEDS: ASPIRIN 81 MG TAB PO (08:20)
[2017-10-27] MEDS: FLUOXETINE 20 MG CAP PO (08:20)
[2017-10-27] MEDS: QUETIAPINE 25 MG TAB PO ×2 (08:20→20:10)
[2017-10-27] MEDS: DOCUSATE SODIUM 100 MG CAP PO ×2 (08:21→20:10)
[2017-10-27] MEDS: FUROSEMIDE 20 MG TAB PO (08:21)
[2017-10-27] MEDS: LISINOPRIL 5 MG TAB PO (08:21)
[2017-10-27] MEDS: DICLOFENAC SODIUM 1% GEL 100 GM TUBE TP ×5 (08:29→21:00)
[2017-10-27] MEDS: BUDESONIDE (NEB) 0.5MG/2ML AMP INH ×3 (09:49→21:02)
[2017-10-27] MEDS: HYDROmorphONE 2 MG TAB PO (11:40)
[2017-10-27 11:44] LABS: ADD MAN DIFF? NO
[2017-10-27 11:46] LABS: BASOPHILS % 0.3 % (0.0-2.0); EOSINOPHILS # 0.3 10^3/ul (0.0-0.5); LYMPHOCYTES # 2.1 10^3/ul (0.8-2.9); LYMPHOCYTES % 22.6 % (15.0-51.0); MEAN CORPUSCULAR HEMOGLOBIN 30.6 pg (29.0-33.0); MEAN CORPUSCULAR HGB CONC 32.4 g/dl (32.0-37.0); MEAN CORPUSCULAR VOLUME 94.4 fl (82.0-101.0); MEAN PLATELET VOLUME 9.1 fl (7.4-10.4); MONOCYTE # 0.9 10^3/ul (0.3-0.9); MONOCYTES % 9.7 % (0.0-11.0); NEUTROPHIL # 5.8 10^3/ul (1.6-7.5); PLATELET COUNT 417 10^3/UL (140-415); RED BLOOD COUNT 3.92 10^6/ul (4.70-6.10); RED CELL DISTRIBUTION WIDTH 12.9 % (11.5-14.5)
[2017-10-27 11:46] LABS: WHITE BLOOD COUNT 9.1 10^3/ul (4.8-10.8)
[2017-10-27 12:16] LABS: ANION GAP 10 (8-16); BLOOD UREA NITROGEN 10 mg/dl (7-20); CALCIUM 8.7 mg/dl (8.4-10.2); CARBON DIOXIDE 29 mmol/L (21-31); CHLORIDE 105 mmol/L (97-110); CREATININE 0.94 mg/dl (0.61-1.24); GLUCOSE 132 mg/dl (70-220); POTASSIUM 4.2 mmol/L (3.5-5.1); SODIUM 140 mmol/L (135-144)
[2017-10-27] MEDS: HYDROmorphONE 1 MG/ML SYG IV ×2 (14:50→20:52)
[2017-10-27] MEDS ORDERED: LORAZEPAM 0.5 MG TAB PO ×2 (18:00→19:00)
[2017-10-27] MEDS: LORAZEPAM 2 MG INJ IV (18:56)
[2017-10-27] MEDS: ATORVASTATIN 20 MG TAB PO (20:10)
[2017-10-28] MEDS: GABAPENTIN 100 MG CAP PO ×6 (00:44→23:15)
[2017-10-28] MEDS: HYDROCODONE/APAP (5/325) TAB PO ×3 (02:50→23:15)
[2017-10-28] MEDS: HYDROmorphONE 1 MG/ML SYG IV ×4 (03:05→20:41)
[2017-10-28] MEDS: PANTOPRAZOLE (EC) 40 MG TAB PO ×2 (05:34→05:39)
[2017-10-28] MEDS: QUETIAPINE 25 MG TAB PO ×2 (08:54→20:40)
[2017-10-28] MEDS: ASPIRIN 81 MG TAB PO (08:54)
[2017-10-28] MEDS: DOCUSATE SODIUM 100 MG CAP PO ×2 (08:54→20:40)
[2017-10-28] MEDS: FLUOXETINE 20 MG CAP PO (08:55)
[2017-10-28] MEDS: DICLOFENAC SODIUM 1% GEL 100 GM TUBE TP ×4 (09:00→20:46)
[2017-10-28] MEDS: FUROSEMIDE 20 MG TAB PO (09:01)
[2017-10-28] MEDS: LISINOPRIL 5 MG TAB PO (09:02)
[2017-10-28] MEDS: BUDESONIDE (NEB) 0.5MG/2ML AMP INH ×2 (09:26→20:01)
[2017-10-28] MEDS: LORAZEPAM 2 MG INJ IV ×2 (11:56→18:03)
[2017-10-28 17:43] LABS: ADD MAN DIFF? NO
[2017-10-28 17:45] LABS: BASOPHILS % 0.3 % (0.0-2.0); EOSINOPHILS # 0.3 10^3/ul (0.0-0.5); EOSINOPHILS % 2.5 % (0.0-7.0); HEMATOCRIT 37.9 % (42.0-52.0); HEMOGLOBIN 12.5 g/dl (14.0-18.0); LYMPHOCYTES # 2.4 10^3/ul (0.8-2.9); LYMPHOCYTES % 20.7 % (15.0-51.0); MEAN CORPUSCULAR HEMOGLOBIN 30.8 pg (29.0-33.0); MEAN CORPUSCULAR VOLUME 93.3 fl (82.0-101.0); MONOCYTE # 1.1 10^3/ul (0.3-0.9); MONOCYTES % 9.6 % (0.0-11.0); NEUTROPHIL # 7.6 10^3/ul (1.6-7.5); NEUTROPHILS % 66.6 % (39.0-77.0); PLATELET COUNT 487 10^3/UL (140-415); RED BLOOD COUNT 4.06 10^6/ul (4.70-6.10); RED CELL DISTRIBUTION WIDTH 12.5 % (11.5-14.5)
[2017-10-28 17:45] LABS: WHITE BLOOD COUNT 11.4 10^3/ul (4.8-10.8)
[2017-10-28 18:03] LABS: ANION GAP 15 (8-16); BLOOD UREA NITROGEN 12 mg/dl (7-20); CALCIUM 8.7 mg/dl (8.4-10.2); CARBON DIOXIDE 25 mmol/L (21-31); CHLORIDE 104 mmol/L (97-110); CREATININE 0.96 mg/dl (0.61-1.24); GLUCOSE 134 mg/dl (70-220); POTASSIUM 4.2 mmol/L (3.5-5.1); SODIUM 140 mmol/L (135-144)
[2017-10-28 18:14] LABS: TROPONIN-I < 0.012 ng/ml (0.000-0.120)
[2017-10-28] MEDS: ATORVASTATIN 20 MG TAB PO (20:40)
[2017-10-29] MEDS: HYDROmorphONE 1 MG/ML SYG IV ×4 (03:18→20:30)
[2017-10-29] MEDS: LORAZEPAM 2 MG INJ IV ×3 (05:25→18:36)
[2017-10-29] MEDS: GABAPENTIN 100 MG CAP PO ×4 (05:26→23:47)
[2017-10-29] MEDS: PANTOPRAZOLE (EC) 40 MG TAB PO (05:26)
[2017-10-29] MEDS: BUDESONIDE (NEB) 0.5MG/2ML AMP INH ×2 (07:58→20:07)
[2017-10-29] MEDS: DICLOFENAC SODIUM 1% GEL 100 GM TUBE TP ×4 (09:00→20:36)
[2017-10-29] MEDS: FUROSEMIDE 20 MG TAB PO (09:13)
[2017-10-29] MEDS: DOCUSATE SODIUM 100 MG CAP PO ×2 (09:13→20:33)
[2017-10-29] MEDS: LISINOPRIL 5 MG TAB PO (09:13)
[2017-10-29] MEDS: FLUOXETINE 20 MG CAP PO (09:13)
[2017-10-29] MEDS: ASPIRIN 81 MG TAB PO (09:13)
[2017-10-29] MEDS: QUETIAPINE 25 MG TAB PO ×2 (09:13→20:33)
[2017-10-29 12:26] LABS: TROPONIN-I < 0.012 ng/ml (0.000-0.120)
[2017-10-29] MEDS: HYDROCODONE/APAP (5/325) TAB PO (14:11)
[2017-10-29] MEDS: ATORVASTATIN 20 MG TAB PO (20:33)
[2017-10-30] MEDS: LORAZEPAM 2 MG INJ IV ×4 (00:32→20:41)
[2017-10-30] MEDS: HYDROmorphONE 1 MG/ML SYG IV ×4 (04:36→22:11)
[2017-10-30] MEDS: PANTOPRAZOLE (EC) 40 MG TAB PO (06:43)
[2017-10-30] MEDS: GABAPENTIN 100 MG CAP PO ×3 (06:43→17:08)
[2017-10-30] MEDS: BUDESONIDE (NEB) 0.5MG/2ML AMP INH ×2 (08:44→19:21)
[2017-10-30] MEDS: LISINOPRIL 5 MG TAB PO (09:00)
[2017-10-30] MEDS: FUROSEMIDE 20 MG TAB PO (09:00)
[2017-10-30] MEDS: DICLOFENAC SODIUM 1% GEL 100 GM TUBE TP ×4 (09:00→20:45)
[2017-10-30 09:20] LABS: ADD MAN DIFF? NO
[2017-10-30 09:24] LABS: BASOPHILS % 0.3 % (0.0-2.0); EOSINOPHILS # 0.3 10^3/ul (0.0-0.5); EOSINOPHILS % 3.3 % (0.0-7.0); HEMATOCRIT 35.6 % (42.0-52.0); HEMOGLOBIN 11.4 g/dl (14.0-18.0); LYMPHOCYTES % 22.5 % (15.0-51.0); MEAN CORPUSCULAR HEMOGLOBIN 30.1 pg (29.0-33.0); MEAN CORPUSCULAR VOLUME 93.9 fl (82.0-101.0); MEAN PLATELET VOLUME 9.4 fl (7.4-10.4); MONOCYTES % 11.3 % (0.0-11.0); NEUTROPHIL # 5.4 10^3/ul (1.6-7.5); NEUTROPHILS % 61.9 % (39.0-77.0); PLATELET COUNT 445 10^3/UL (140-415); RED BLOOD COUNT 3.79 10^6/ul (4.70-6.10); RED CELL DISTRIBUTION WIDTH 12.6 % (11.5-14.5)
[2017-10-30 09:24] LABS: WHITE BLOOD COUNT 8.7 10^3/ul (4.8-10.8)
[2017-10-30 10:08] LABS: ANION GAP 8 (8-16); BLOOD UREA NITROGEN 11 mg/dl (7-20); CALCIUM 8.7 mg/dl (8.4-10.2); CARBON DIOXIDE 31 mmol/L (21-31); CHLORIDE 107 mmol/L (97-110); CREATININE 0.78 mg/dl (0.61-1.24); GLUCOSE 124 mg/dl (70-220); POTASSIUM 4.4 mmol/L (3.5-5.1); SODIUM 142 mmol/L (135-144)
[2017-10-30] MEDS: DOCUSATE SODIUM 100 MG CAP PO ×2 (10:25→20:41)
[2017-10-30] MEDS: FLUOXETINE 20 MG CAP PO (10:25)
[2017-10-30] MEDS: ASPIRIN 81 MG TAB PO (10:26)
[2017-10-30] MEDS: QUETIAPINE 25 MG TAB PO ×2 (10:26→20:41)
[2017-10-30] MEDS ORDERED: HYDROmorphONE 2 MG TAB PO (16:30)
[2017-10-30] MEDS: ATORVASTATIN 20 MG TAB PO (20:41)
[2017-10-31] MEDS: HYDROmorphONE 1 MG/ML SYG IV ×4 (04:04→21:58)
[2017-10-31] MEDS: PANTOPRAZOLE (EC) 40 MG TAB PO (06:30)
[2017-10-31] MEDS: GABAPENTIN 100 MG CAP PO ×4 (06:30→17:07)
[2017-10-31] MEDS: FLUOXETINE 20 MG CAP PO (08:33)
[2017-10-31] MEDS: LISINOPRIL 5 MG TAB PO (08:33)
[2017-10-31] MEDS: DICLOFENAC SODIUM 1% GEL 100 GM TUBE TP ×4 (08:33→21:00)
[2017-10-31] MEDS: QUETIAPINE 25 MG TAB PO ×2 (08:33→20:53)
[2017-10-31] MEDS: FUROSEMIDE 20 MG TAB PO (08:33)
[2017-10-31] MEDS: DOCUSATE SODIUM 100 MG CAP PO ×2 (08:33→20:52)
[2017-10-31] MEDS: ASPIRIN 81 MG TAB PO (08:33)
[2017-10-31] MEDS: LORAZEPAM 2 MG INJ IV ×2 (08:55→23:11)
[2017-10-31] MEDS: BUDESONIDE (NEB) 0.5MG/2ML AMP INH ×2 (09:05→20:24)
[2017-10-31] MEDS: ATORVASTATIN 20 MG TAB PO (20:52)
[2017-11-01] MEDS: HYDROmorphONE 1 MG/ML SYG IV ×5 (04:17→23:28)
[2017-11-01] MEDS: GABAPENTIN 100 MG CAP PO ×4 (04:18→18:20)
[2017-11-01] MEDS: PANTOPRAZOLE (EC) 40 MG TAB PO (04:18)
[2017-11-01] MEDS: DICLOFENAC SODIUM 1% GEL 100 GM TUBE TP ×4 (09:00→20:17)
[2017-11-01] MEDS: FLUOXETINE 20 MG CAP PO (09:05)
[2017-11-01] MEDS: ASPIRIN 81 MG TAB PO (09:05)
[2017-11-01] MEDS: DOCUSATE SODIUM 100 MG CAP PO ×2 (09:05→20:13)
[2017-11-01] MEDS: QUETIAPINE 25 MG TAB PO ×2 (09:05→20:12)
[2017-11-01] MEDS: FUROSEMIDE 20 MG TAB PO (09:06)
[2017-11-01] MEDS: LISINOPRIL 5 MG TAB PO (09:06)
[2017-11-01] MEDS: LORAZEPAM 2 MG INJ IV ×2 (09:18→18:22)
[2017-11-01] MEDS: BUDESONIDE (NEB) 0.5MG/2ML AMP INH ×2 (10:13→20:33)
[2017-11-01] MEDS: HYDROCODONE/APAP (5/325) TAB PO (18:21)
[2017-11-01] MEDS: ATORVASTATIN 20 MG TAB PO (20:12)
[2017-11-02] MEDS: LORAZEPAM 2 MG INJ IV ×2 (01:22→06:03)
[2017-11-02] MEDS: HYDROmorphONE 1 MG/ML SYG IV ×6 (02:58→21:29)
[2017-11-02] MEDS: GABAPENTIN 100 MG CAP PO ×4 (05:19→17:25)
[2017-11-02] MEDS: PANTOPRAZOLE (EC) 40 MG TAB PO (05:20)
[2017-11-02] MEDS: DICLOFENAC SODIUM 1% GEL 100 GM TUBE TP ×4 (09:00→20:07)
[2017-11-02] MEDS: QUETIAPINE 25 MG TAB PO ×2 (09:08→20:04)
[2017-11-02] MEDS: FLUOXETINE 20 MG CAP PO (09:08)
[2017-11-02] MEDS: FUROSEMIDE 20 MG TAB PO (09:08)
[2017-11-02] MEDS: LISINOPRIL 5 MG TAB PO (09:08)
[2017-11-02] MEDS: DOCUSATE SODIUM 100 MG CAP PO ×2 (09:08→20:04)
[2017-11-02] MEDS: ASPIRIN 81 MG TAB PO (09:08)
[2017-11-02] MEDS: BUDESONIDE (NEB) 0.5MG/2ML AMP INH ×2 (09:14→20:07)
[2017-11-02] MEDS: ATORVASTATIN 20 MG TAB PO (20:04)
[2017-11-03] MEDS: HYDROmorphONE 1 MG/ML SYG IV ×7 (01:23→21:03)
[2017-11-03] MEDS: GABAPENTIN 100 MG CAP PO ×4 (01:24→18:24)
[2017-11-03] MEDS: PANTOPRAZOLE (EC) 40 MG TAB PO (05:18)
[2017-11-03] MEDS: LORAZEPAM 2 MG INJ IV ×2 (06:54→18:32)
[2017-11-03 06:58] LABS: WHITE BLOOD COUNT 10.5 10^3/ul (4.8-10.8)
[2017-11-03 06:58] LABS: ADD MAN DIFF? NO; BASOPHILS % 0.2 % (0.0-2.0); EOSINOPHILS # 0.3 10^3/ul (0.0-0.5); EOSINOPHILS % 2.6 % (0.0-7.0); HEMATOCRIT 36.2 % (42.0-52.0); HEMOGLOBIN 11.6 g/dl (14.0-18.0); LYMPHOCYTES # 2.2 10^3/ul (0.8-2.9); LYMPHOCYTES % 20.7 % (15.0-51.0); MEAN CORPUSCULAR HEMOGLOBIN 30.5 pg (29.0-33.0); MEAN CORPUSCULAR VOLUME 95.3 fl (82.0-101.0); MEAN PLATELET VOLUME 8.9 fl (7.4-10.4); MONOCYTE # 1.3 10^3/ul (0.3-0.9); MONOCYTES % 12.3 % (0.0-11.0); NEUTROPHIL # 6.6 10^3/ul (1.6-7.5); NEUTROPHILS % 62.9 % (39.0-77.0); PLATELET COUNT 500 10^3/UL (140-415); RED CELL DISTRIBUTION WIDTH 12.3 % (11.5-14.5)
[2017-11-03] MEDS: DICLOFENAC SODIUM 1% GEL 100 GM TUBE TP ×4 (09:00→20:29)
[2017-11-03] MEDS: BUDESONIDE (NEB) 0.5MG/2ML AMP INH ×2 (09:02→20:00)
[2017-11-03] MEDS: DOCUSATE SODIUM 100 MG CAP PO ×2 (09:08→20:28)
[2017-11-03] MEDS: FLUOXETINE 20 MG CAP PO (09:08)
[2017-11-03] MEDS: ASPIRIN 81 MG TAB PO (09:08)
[2017-11-03] MEDS: QUETIAPINE 25 MG TAB PO ×2 (09:08→20:28)
[2017-11-03] MEDS: FUROSEMIDE 20 MG TAB PO (09:09)
[2017-11-03] MEDS: LISINOPRIL 5 MG TAB PO (09:09)
[2017-11-03 09:54] LABS: PT RATIO 1.1
[2017-11-03 09:58] LABS: INR 1.11; PARTIAL THROMBOPLASTIN TIME 39.8 Sec (25.0-35.0); PROTIME 14.5 Sec (11.9-14.9)
[2017-11-03] MEDS: HYDROCODONE/APAP (5/325) TAB PO (19:43)
[2017-11-03] MEDS: ATORVASTATIN 20 MG TAB PO (20:28)
[2017-11-04] MEDS: GABAPENTIN 100 MG CAP PO ×5 (00:03→23:43)
[2017-11-04] MEDS: HYDROmorphONE 1 MG/ML SYG IV ×6 (00:46→22:38)
[2017-11-04] MEDS: PANTOPRAZOLE (EC) 40 MG TAB PO (05:39)
[2017-11-04] MEDS ORDERED: CEFAZOLIN 1 GM INJ (07:00)
[2017-11-04] MEDS: LORAZEPAM 2 MG INJ IV ×2 (08:45→20:08)
[2017-11-04] MEDS: FLUOXETINE 20 MG CAP PO (09:00)
[2017-11-04] MEDS: DICLOFENAC SODIUM 1% GEL 100 GM TUBE TP ×2 (09:00→13:00)
[2017-11-04] MEDS: LISINOPRIL 5 MG TAB PO (09:00)
[2017-11-04] MEDS: DOCUSATE SODIUM 100 MG CAP PO ×2 (09:00→20:08)
[2017-11-04] MEDS: QUETIAPINE 25 MG TAB PO ×2 (09:00→20:07)
[2017-11-04] MEDS: BUDESONIDE (NEB) 0.5MG/2ML AMP INH ×2 (09:19→19:57)
[2017-11-04] MEDS ORDERED: PROPOFOL 20 ML (14:14)
[2017-11-04] MEDS ORDERED: ROCURONIUM 50 MG INJ (14:14)
[2017-11-04] MEDS ORDERED: FENTAnyl 50 MCG/ML VIAL (14:14)
[2017-11-04] MEDS ORDERED: GLYCOPYRROLATE 0.4 MG INJ (14:14)
[2017-11-04] MEDS ORDERED: NEOSTIGMINE 3 MG/3 ML SYRINGE (14:14)
[2017-11-04] MEDS ORDERED: METOCLOPRAMIDE 10 MG INJ (14:15)
[2017-11-04] MEDS ORDERED: ONDANSETRON 4 MG INJ (14:15)
[2017-11-04] MEDS ORDERED: MIDAZOLAM 1 MG/ML 2 ML INJ (14:35)
[2017-11-04] MEDS ORDERED: SUCCINYLCHOLINE CHLORIDE 100 MG/5 ML SYG IV (15:24)
[2017-11-04] MEDS ORDERED: EPHEDrine 25 MG/5 ML SYG (15:24)
[2017-11-04] MEDS ORDERED: PHENYLephrine (100 MCG/ML) 5ML SYG (15:30)
[2017-11-04] MEDS: BUPIVACAINE 0.25%/EPI (SDV) 30 ML INJ (15:42)
[2017-11-04] MEDS ORDERED: HYDROmorphONE 1 MG/5 ML IV SYRINGE IV ×2 (17:00)
[2017-11-04] MEDS ORDERED: ONDANSETRON 4 MG INJ IV (17:00)
[2017-11-04] MEDS ORDERED: LABETALOL HCL 20MG INJ IV (17:00)
[2017-11-04] MEDS ORDERED: hydrALAzine 20 MG INJ IV (17:00)
[2017-11-04] MEDS: HYDROmorphONE 1 MG/5 ML IV SYRINGE IV (17:03)
[2017-11-04] MEDS: ATORVASTATIN 20 MG TAB PO (20:07)
[2017-11-04] MEDS: HYDROCODONE/APAP (5/325) TAB PO (23:44)
[2017-11-05] MEDS: HYDROmorphONE 1 MG/ML SYG IV ×5 (04:19→20:13)
[2017-11-05] MEDS: GABAPENTIN 100 MG CAP PO ×3 (05:44→17:16)
[2017-11-05] MEDS: HYDROCODONE/APAP (5/325) TAB PO (05:44)
[2017-11-05] MEDS: PANTOPRAZOLE (EC) 40 MG TAB PO (05:44)
[2017-11-05 05:58] LABS: ADD MAN DIFF? NO
[2017-11-05 06:07] LABS: BASOPHILS % 0.3 % (0.0-2.0); EOSINOPHILS # 0.2 10^3/ul (0.0-0.5); EOSINOPHILS % 1.8 % (0.0-7.0); HEMATOCRIT 34.6 % (42.0-52.0); HEMOGLOBIN 11.3 g/dl (14.0-18.0); LYMPHOCYTES % 16.9 % (15.0-51.0); MEAN CORPUSCULAR HEMOGLOBIN 30.7 pg (29.0-33.0); MEAN CORPUSCULAR HGB CONC 32.7 g/dl (32.0-37.0); MEAN PLATELET VOLUME 8.8 fl (7.4-10.4); MONOCYTE # 1.3 10^3/ul (0.3-0.9); MONOCYTES % 10.6 % (0.0-11.0); NEUTROPHIL # 8.2 10^3/ul (1.6-7.5); NEUTROPHILS % 69.4 % (39.0-77.0); PLATELET COUNT 490 10^3/UL (140-415); RED BLOOD COUNT 3.68 10^6/ul (4.70-6.10); RED CELL DISTRIBUTION WIDTH 12.1 % (11.5-14.5)
[2017-11-05 06:07] LABS: WHITE BLOOD COUNT 11.8 10^3/ul (4.8-10.8)
[2017-11-05 06:49] LABS: ANION GAP 10 (8-16); BLOOD UREA NITROGEN 10 mg/dl (7-20); CALCIUM 8.9 mg/dl (8.4-10.2); CARBON DIOXIDE 30 mmol/L (21-31); CHLORIDE 103 mmol/L (97-110); CREATININE 0.88 mg/dl (0.61-1.24); GLUCOSE 152 mg/dl (70-220); POTASSIUM 3.9 mmol/L (3.5-5.1); SODIUM 139 mmol/L (135-144)
[2017-11-05] MEDS: QUETIAPINE 25 MG TAB PO ×2 (08:18→20:12)
[2017-11-05] MEDS: FLUOXETINE 20 MG CAP PO (08:18)
[2017-11-05] MEDS: LISINOPRIL 5 MG TAB PO (08:19)
[2017-11-05] MEDS: BUDESONIDE (NEB) 0.5MG/2ML AMP INH ×2 (08:30→19:55)
[2017-11-05] MEDS: LORAZEPAM 2 MG INJ IV (18:14)
[2017-11-05] MEDS: ATORVASTATIN 20 MG TAB PO (20:11)
[2017-11-06] MEDS: HYDROmorphONE 1 MG/ML SYG IV ×6 (00:07→20:17)
[2017-11-06] MEDS: GABAPENTIN 100 MG CAP PO ×4 (05:56→17:15)
[2017-11-06] MEDS: PANTOPRAZOLE (EC) 40 MG TAB PO (05:56)
[2017-11-06] MEDS: FLUOXETINE 20 MG CAP PO (08:04)
[2017-11-06] MEDS: LISINOPRIL 5 MG TAB PO (08:05)
[2017-11-06] MEDS: QUETIAPINE 25 MG TAB PO ×2 (08:05→20:16)
[2017-11-06] MEDS: LORAZEPAM 2 MG INJ IV ×2 (08:07→18:02)
[2017-11-06] MEDS: BUDESONIDE (NEB) 0.5MG/2ML AMP INH ×2 (09:00→20:00)
[2017-11-06] MEDS: HYDROCODONE/APAP (5/325) TAB PO ×2 (13:40→22:35)
[2017-11-06] MEDS: CEPHALEXIN 500 MG CAP PO (17:15)
[2017-11-06] MEDS: ATORVASTATIN 20 MG TAB PO (20:16)
[2017-11-07] MEDS: GABAPENTIN 100 MG CAP PO ×5 (00:26→23:40)
[2017-11-07] MEDS: CEPHALEXIN 500 MG CAP PO ×5 (00:26→23:40)
[2017-11-07] MEDS: HYDROmorphONE 1 MG/ML SYG IV ×6 (00:26→21:16)
[2017-11-07] MEDS: PANTOPRAZOLE (EC) 40 MG TAB PO (05:05)
[2017-11-07] MEDS: BUDESONIDE (NEB) 0.5MG/2ML AMP INH ×2 (08:07→20:33)
[2017-11-07] MEDS: LISINOPRIL 5 MG TAB PO (09:00)
[2017-11-07] MEDS: FLUOXETINE 20 MG CAP PO (09:05)
[2017-11-07] MEDS: QUETIAPINE 25 MG TAB PO ×2 (09:05→21:16)
[2017-11-07] MEDS: LORAZEPAM 2 MG INJ IV ×3 (10:10→23:23)
[2017-11-07] MEDS: ATORVASTATIN 20 MG TAB PO (21:16)
[2017-11-08] MEDS: HYDROmorphONE 1 MG/ML SYG IV ×6 (03:37→23:22)
[2017-11-08] MEDS: PANTOPRAZOLE (EC) 40 MG TAB PO (05:33)
[2017-11-08] MEDS: GABAPENTIN 100 MG CAP PO ×3 (05:33→17:21)
[2017-11-08] MEDS: CEPHALEXIN 500 MG CAP PO ×3 (05:33→17:21)
[2017-11-08] MEDS: LISINOPRIL 5 MG TAB PO (08:27)
[2017-11-08] MEDS: FLUOXETINE 20 MG CAP PO (08:27)
[2017-11-08] MEDS: QUETIAPINE 25 MG TAB PO ×2 (08:27→19:42)
[2017-11-08] MEDS: LORAZEPAM 2 MG INJ IV ×2 (08:28→17:30)
[2017-11-08] MEDS: BUDESONIDE (NEB) 0.5MG/2ML AMP INH ×2 (08:39→19:43)
[2017-11-08] MEDS: ATORVASTATIN 20 MG TAB PO (19:42)
[2017-11-09] MEDS: GABAPENTIN 100 MG CAP PO ×5 (00:13→23:29)
[2017-11-09] MEDS: CEPHALEXIN 500 MG CAP PO ×5 (00:13→23:29)
[2017-11-09] MEDS: LORAZEPAM 2 MG INJ IV ×3 (01:53→17:39)
[2017-11-09] MEDS: HYDROmorphONE 1 MG/ML SYG IV ×6 (03:42→23:29)
[2017-11-09] MEDS: PANTOPRAZOLE (EC) 40 MG TAB PO (05:04)
[2017-11-09] MEDS: HYDROCODONE/APAP (5/325) TAB PO (05:04)
[2017-11-09 06:37] LABS: ADD MAN DIFF? NO
[2017-11-09 06:44] LABS: BASOPHILS % 0.3 % (0.0-2.0); EOSINOPHILS # 0.3 10^3/ul (0.0-0.5); HEMATOCRIT 38.7 % (42.0-52.0); HEMOGLOBIN 12.5 g/dl (14.0-18.0); LYMPHOCYTES % 18.5 % (15.0-51.0); MEAN CORPUSCULAR HEMOGLOBIN 30.3 pg (29.0-33.0); MEAN CORPUSCULAR HGB CONC 32.3 g/dl (32.0-37.0); MEAN CORPUSCULAR VOLUME 93.7 fl (82.0-101.0); MONOCYTE # 1.3 10^3/ul (0.3-0.9); MONOCYTES % 12.1 % (0.0-11.0); NEUTROPHIL # 7.2 10^3/ul (1.6-7.5); NEUTROPHILS % 65.5 % (39.0-77.0); PLATELET COUNT 442 10^3/UL (140-415); RED BLOOD COUNT 4.13 10^6/ul (4.70-6.10); RED CELL DISTRIBUTION WIDTH 12.2 % (11.5-14.5)
[2017-11-09 06:44] LABS: WHITE BLOOD COUNT 11.1 10^3/ul (4.8-10.8)
[2017-11-09] MEDS: BUDESONIDE (NEB) 0.5MG/2ML AMP INH ×2 (07:37→21:37)
[2017-11-09] MEDS: ASPIRIN 81 MG TAB PO (08:44)
[2017-11-09] MEDS: FLUOXETINE 20 MG CAP PO (08:44)
[2017-11-09] MEDS: LISINOPRIL 5 MG TAB PO (08:44)
[2017-11-09] MEDS: QUETIAPINE 25 MG TAB PO ×2 (08:45→19:36)
[2017-11-09] MEDS: SODIUM HYPOCHLORITE (1/40) 1 APPLIC BTL IRR (19:28)
[2017-11-09] MEDS: ATORVASTATIN 20 MG TAB PO (19:36)
[2017-11-10] MEDS: HYDROmorphONE 1 MG/ML SYG IV ×6 (03:36→23:50)
[2017-11-10] MEDS: PANTOPRAZOLE (EC) 40 MG TAB PO (05:50)
[2017-11-10] MEDS: LORAZEPAM 2 MG INJ IV ×3 (05:50→23:28)
[2017-11-10] MEDS: GABAPENTIN 100 MG CAP PO ×4 (05:50→23:27)
[2017-11-10] MEDS: CEPHALEXIN 500 MG CAP PO ×4 (05:50→23:27)
[2017-11-10] MEDS: BUDESONIDE (NEB) 0.5MG/2ML AMP INH ×2 (07:52→20:32)
[2017-11-10] MEDS: FLUOXETINE 20 MG CAP PO (09:19)
[2017-11-10] MEDS: LISINOPRIL 5 MG TAB PO (09:20)
[2017-11-10] MEDS: QUETIAPINE 25 MG TAB PO ×2 (09:20→20:39)
[2017-11-10] MEDS: ASPIRIN 81 MG TAB PO (09:20)
[2017-11-10] MEDS: SODIUM HYPOCHLORITE (1/40) 1 APPLIC BTL IRR ×2 (09:24→20:39)
[2017-11-10] MEDS: HYDROCODONE/APAP (5/325) TAB PO (14:09)
[2017-11-10] MEDS: FUROSEMIDE 20 MG INJ IV (15:54)
[2017-11-10] MEDS: ATORVASTATIN 20 MG TAB PO (20:39)
[2017-11-11] MEDS: HYDROmorphONE 1 MG/ML SYG IV ×5 (04:01→20:03)
[2017-11-11] MEDS: PANTOPRAZOLE (EC) 40 MG TAB PO (06:00)
[2017-11-11] MEDS: GABAPENTIN 100 MG CAP PO ×3 (06:00→18:17)
[2017-11-11] MEDS: CEPHALEXIN 500 MG CAP PO ×3 (06:00→18:17)
[2017-11-11] MEDS: LORAZEPAM 2 MG INJ IV ×3 (06:24→21:10)
[2017-11-11] MEDS: LISINOPRIL 5 MG TAB PO (08:07)
[2017-11-11] MEDS: QUETIAPINE 25 MG TAB PO ×2 (08:07→20:03)
[2017-11-11] MEDS: ASPIRIN 81 MG TAB PO (08:07)
[2017-11-11] MEDS: FLUOXETINE 20 MG CAP PO (08:07)
[2017-11-11] MEDS: SODIUM HYPOCHLORITE (1/40) 1 APPLIC BTL IRR ×2 (08:08→20:03)
[2017-11-11] MEDS: BUDESONIDE (NEB) 0.5MG/2ML AMP INH ×2 (08:21→19:16)
[2017-11-11] MEDS: FUROSEMIDE 20 MG INJ IV (18:17)
[2017-11-11] MEDS: ATORVASTATIN 20 MG TAB PO (20:03)
[2017-11-12] MEDS: GABAPENTIN 100 MG CAP PO ×4 (00:01→17:44)
[2017-11-12] MEDS: CEPHALEXIN 500 MG CAP PO ×4 (00:02→17:44)
[2017-11-12] MEDS: HYDROmorphONE 1 MG/ML SYG IV ×7 (00:02→23:06)
[2017-11-12] MEDS: LORAZEPAM 2 MG INJ IV ×3 (03:09→18:36)
[2017-11-12] MEDS: PANTOPRAZOLE (EC) 40 MG TAB PO (05:10)
[2017-11-12 07:21] LABS: ADD MAN DIFF? NO
[2017-11-12 07:25] LABS: BASOPHILS % 0.3 % (0.0-2.0); EOSINOPHILS # 0.3 10^3/ul (0.0-0.5); EOSINOPHILS % 3.1 % (0.0-7.0); HEMATOCRIT 36.2 % (42.0-52.0); HEMOGLOBIN 11.6 g/dl (14.0-18.0); LYMPHOCYTES # 1.6 10^3/ul (0.8-2.9); MEAN CORPUSCULAR HEMOGLOBIN 29.9 pg (29.0-33.0); MEAN CORPUSCULAR VOLUME 93.3 fl (82.0-101.0); MEAN PLATELET VOLUME 9.3 fl (7.4-10.4); MONOCYTE # 1.2 10^3/ul (0.3-0.9); MONOCYTES % 12.2 % (0.0-11.0); NEUTROPHIL # 6.9 10^3/ul (1.6-7.5); NEUTROPHILS % 67.9 % (39.0-77.0); PLATELET COUNT 406 10^3/UL (140-415); RED BLOOD COUNT 3.88 10^6/ul (4.70-6.10); RED CELL DISTRIBUTION WIDTH 12.3 % (11.5-14.5)
[2017-11-12 07:25] LABS: WHITE BLOOD COUNT 10.2 10^3/ul (4.8-10.8)
[2017-11-12 07:48] LABS: ANION GAP 11 (8-16); BLOOD UREA NITROGEN 11 mg/dl (7-20); CALCIUM 9.3 mg/dl (8.4-10.2); CARBON DIOXIDE 31 mmol/L (21-31); CHLORIDE 103 mmol/L (97-110); CREATININE 0.87 mg/dl (0.61-1.24); GLUCOSE 116 mg/dl (70-220); POTASSIUM 4.2 mmol/L (3.5-5.1); SODIUM 141 mmol/L (135-144)
[2017-11-12] MEDS: BUDESONIDE (NEB) 0.5MG/2ML AMP INH ×2 (07:59→19:01)
[2017-11-12] MEDS: FLUOXETINE 20 MG CAP PO (08:54)
[2017-11-12] MEDS: LISINOPRIL 5 MG TAB PO (08:54)
[2017-11-12] MEDS: QUETIAPINE 25 MG TAB PO ×2 (08:54→22:12)
[2017-11-12] MEDS: ASPIRIN 81 MG TAB PO (08:54)
[2017-11-12] MEDS: SODIUM HYPOCHLORITE (1/40) 1 APPLIC BTL IRR ×2 (11:20→23:09)
[2017-11-12] MEDS: ATORVASTATIN 20 MG TAB PO (22:12)
[2017-11-13] MEDS: LORAZEPAM 2 MG INJ IV ×4 (00:37→22:02)
[2017-11-13] MEDS: HYDROmorphONE 1 MG/ML SYG IV ×6 (00:45→19:32)
[2017-11-13] MEDS: CEPHALEXIN 500 MG CAP PO ×4 (01:16→18:05)
[2017-11-13] MEDS: GABAPENTIN 100 MG CAP PO ×4 (01:16→18:05)
[2017-11-13] MEDS: PANTOPRAZOLE (EC) 40 MG TAB PO (05:13)
[2017-11-13] MEDS: HYDROCODONE/APAP (5/325) TAB PO (05:13)
[2017-11-13] MEDS: LISINOPRIL 5 MG TAB PO (09:00)
[2017-11-13] MEDS: BUDESONIDE (NEB) 0.5MG/2ML AMP INH ×2 (09:00→19:55)
[2017-11-13] MEDS: FLUOXETINE 20 MG CAP PO (09:07)
[2017-11-13] MEDS: ASPIRIN 81 MG TAB PO (09:07)
[2017-11-13] MEDS: QUETIAPINE 25 MG TAB PO ×2 (09:08→19:32)
[2017-11-13] MEDS: SODIUM HYPOCHLORITE (1/40) 1 APPLIC BTL IRR ×2 (09:32→19:33)
[2017-11-13] MEDS: ATORVASTATIN 20 MG TAB PO (19:32)
[2017-11-14] MEDS: CEPHALEXIN 500 MG CAP PO ×5 (00:02→17:40)
[2017-11-14] MEDS: GABAPENTIN 100 MG CAP PO ×5 (00:02→17:40)
[2017-11-14] MEDS: HYDROmorphONE 1 MG/ML SYG IV ×7 (00:02→23:59)
[2017-11-14] MEDS: PANTOPRAZOLE (EC) 40 MG TAB PO ×2 (05:54→07:23)
[2017-11-14] MEDS: LORAZEPAM 2 MG INJ IV ×3 (07:23→21:39)
[2017-11-14] MEDS: BUDESONIDE (NEB) 0.5MG/2ML AMP INH ×2 (07:57→20:13)
[2017-11-14] MEDS: ASPIRIN 81 MG TAB PO (08:13)
[2017-11-14] MEDS: QUETIAPINE 25 MG TAB PO ×2 (08:13→20:03)
[2017-11-14] MEDS: FLUOXETINE 20 MG CAP PO (08:13)
[2017-11-14] MEDS: SODIUM HYPOCHLORITE (1/40) 1 APPLIC BTL IRR ×2 (08:15→23:59)
[2017-11-14] MEDS: LISINOPRIL 5 MG TAB PO (08:15)
[2017-11-14] MEDS: CIPROFLOXACIN HCL OTIC DROP 0.25 ML BOTH EARS ×2 (16:28→20:04)
[2017-11-14] MEDS: ATORVASTATIN 20 MG TAB PO (20:03)
[2017-11-15] MEDS: CEPHALEXIN 500 MG CAP PO ×4 (00:08→17:48)
[2017-11-15] MEDS: GABAPENTIN 100 MG CAP PO ×4 (00:08→17:48)
[2017-11-15] MEDS: HYDROmorphONE 1 MG/ML SYG IV ×5 (04:09→20:48)
[2017-11-15] MEDS: PANTOPRAZOLE (EC) 40 MG TAB PO (04:09)
[2017-11-15] MEDS: LORAZEPAM 2 MG INJ IV ×3 (05:22→17:49)
[2017-11-15] MEDS: ASPIRIN 81 MG TAB PO (08:09)
[2017-11-15] MEDS: SODIUM HYPOCHLORITE (1/40) 1 APPLIC BTL IRR ×2 (08:09→21:00)
[2017-11-15] MEDS: QUETIAPINE 25 MG TAB PO ×2 (08:10→20:39)
[2017-11-15] MEDS: FLUOXETINE 20 MG CAP PO (08:10)
[2017-11-15] MEDS: CIPROFLOXACIN HCL OTIC DROP 0.25 ML BOTH EARS ×2 (08:10→20:38)
[2017-11-15] MEDS: LISINOPRIL 5 MG TAB PO (08:10)
[2017-11-15] MEDS: BUDESONIDE (NEB) 0.5MG/2ML AMP INH ×2 (08:12→20:23)
[2017-11-15] MEDS: ATORVASTATIN 20 MG TAB PO (20:38)
[2017-11-16] MEDS: HYDROmorphONE 1 MG/ML SYG IV ×3 (00:23→08:50)
[2017-11-16] MEDS: GABAPENTIN 100 MG CAP PO ×4 (00:23→17:11)
[2017-11-16] MEDS: CEPHALEXIN 500 MG CAP PO ×4 (00:23→17:11)
[2017-11-16] MEDS: LORAZEPAM 2 MG INJ IV ×4 (02:07→22:32)
[2017-11-16] MEDS: PANTOPRAZOLE (EC) 40 MG TAB PO (06:19)
[2017-11-16 06:42] LABS: ANION GAP 12 (8-16); BLOOD UREA NITROGEN 10 mg/dl (7-20); CALCIUM 9.2 mg/dl (8.4-10.2); CARBON DIOXIDE 29 mmol/L (21-31); CHLORIDE 106 mmol/L (97-110); CREATININE 0.78 mg/dl (0.61-1.24); GLUCOSE 127 mg/dl (70-220); POTASSIUM 4.2 mmol/L (3.5-5.1); SODIUM 143 mmol/L (135-144)
[2017-11-16] MEDS: CIPROFLOXACIN HCL OTIC DROP 0.25 ML BOTH EARS ×2 (08:50→21:18)
[2017-11-16] MEDS: ASPIRIN 81 MG TAB PO (08:51)
[2017-11-16] MEDS: LISINOPRIL 5 MG TAB PO (08:51)
[2017-11-16] MEDS: FLUOXETINE 20 MG CAP PO (08:51)
[2017-11-16] MEDS: SODIUM HYPOCHLORITE (1/40) 1 APPLIC BTL IRR ×2 (08:52→21:00)
[2017-11-16] MEDS: QUETIAPINE 25 MG TAB PO ×2 (08:54→21:18)
[2017-11-16] MEDS: BUDESONIDE (NEB) 0.5MG/2ML AMP INH ×2 (09:39→19:38)
[2017-11-16] MEDS: HYDROCODONE/APAP (5/325) TAB PO (11:18)
[2017-11-16] MEDS: HYDROmorphONE 2 MG/ML SYG IV ×3 (13:03→20:56)
[2017-11-16] MEDS: ATORVASTATIN 20 MG TAB PO (21:17)
[2017-11-17] MEDS: CEPHALEXIN 500 MG CAP PO ×4 (00:58→17:04)
[2017-11-17] MEDS: GABAPENTIN 100 MG CAP PO ×4 (00:58→17:04)
[2017-11-17] MEDS: HYDROmorphONE 2 MG/ML SYG IV ×6 (00:58→21:07)
[2017-11-17] MEDS: PANTOPRAZOLE (EC) 40 MG TAB PO (05:06)
[2017-11-17 06:25] LABS: ADD MAN DIFF? NO
[2017-11-17 06:26] LABS: BASOPHILS % 0.3 % (0.0-2.0); EOSINOPHILS # 0.4 10^3/ul (0.0-0.5); EOSINOPHILS % 4.1 % (0.0-7.0); HEMATOCRIT 35.3 % (42.0-52.0); HEMOGLOBIN 11.4 g/dl (14.0-18.0); LYMPHOCYTES # 1.7 10^3/ul (0.8-2.9); LYMPHOCYTES % 17.4 % (15.0-51.0); MEAN CORPUSCULAR HEMOGLOBIN 30.1 pg (29.0-33.0); MEAN CORPUSCULAR HGB CONC 32.3 g/dl (32.0-37.0); MEAN CORPUSCULAR VOLUME 93.1 fl (82.0-101.0); MEAN PLATELET VOLUME 9.2 fl (7.4-10.4); MONOCYTE # 1.4 10^3/ul (0.3-0.9); MONOCYTES % 13.7 % (0.0-11.0); NEUTROPHIL # 6.3 10^3/ul (1.6-7.5); NEUTROPHILS % 64.1 % (39.0-77.0); PLATELET COUNT 429 10^3/UL (140-415); RED BLOOD COUNT 3.79 10^6/ul (4.70-6.10); RED CELL DISTRIBUTION WIDTH 12.4 % (11.5-14.5)
[2017-11-17 06:26] LABS: WHITE BLOOD COUNT 9.9 10^3/ul (4.8-10.8)
[2017-11-17 06:48] LABS: ANION GAP 11 (8-16); BLOOD UREA NITROGEN 13 mg/dl (7-20); CALCIUM 9.2 mg/dl (8.4-10.2); CARBON DIOXIDE 30 mmol/L (21-31); CHLORIDE 104 mmol/L (97-110); GLUCOSE 119 mg/dl (70-220); POTASSIUM 4.1 mmol/L (3.5-5.1); SODIUM 141 mmol/L (135-144)
[2017-11-17] MEDS: LORAZEPAM 2 MG INJ IV ×3 (07:58→20:06)
[2017-11-17] MEDS: BUDESONIDE (NEB) 0.5MG/2ML AMP INH ×2 (08:28→20:56)
[2017-11-17] MEDS: ASPIRIN 81 MG TAB PO (09:01)
[2017-11-17] MEDS: FLUOXETINE 20 MG CAP PO (09:01)
[2017-11-17] MEDS: QUETIAPINE 25 MG TAB PO ×2 (09:01→21:07)
[2017-11-17] MEDS: LISINOPRIL 5 MG TAB PO (09:02)
[2017-11-17] MEDS: CIPROFLOXACIN HCL OTIC DROP 0.25 ML BOTH EARS ×2 (09:10→21:06)
[2017-11-17] MEDS: SODIUM HYPOCHLORITE (1/40) 1 APPLIC BTL IRR ×2 (14:04→21:12)
[2017-11-17] MEDS: ATORVASTATIN 20 MG TAB PO (21:06)
[2017-11-17] MEDS: SENNA TAB PO (21:07)
[2017-11-17] MEDS: HYDROCODONE/APAP (5/325) TAB PO (22:26)
[2017-11-18] MEDS: CEPHALEXIN 500 MG CAP PO ×5 (00:57→23:26)
[2017-11-18] MEDS: GABAPENTIN 100 MG CAP PO ×5 (00:57→23:26)
[2017-11-18] MEDS: HYDROmorphONE 2 MG/ML SYG IV ×6 (00:58→21:17)
[2017-11-18] MEDS: LORAZEPAM 2 MG INJ IV ×4 (02:30→23:57)
[2017-11-18] MEDS: PANTOPRAZOLE (EC) 40 MG TAB PO (05:08)
[2017-11-18] MEDS: BUDESONIDE (NEB) 0.5MG/2ML AMP INH ×2 (08:39→19:30)
[2017-11-18] MEDS: QUETIAPINE 25 MG TAB PO ×2 (08:40→21:18)
[2017-11-18] MEDS: FLUOXETINE 20 MG CAP PO (08:40)
[2017-11-18] MEDS: ASPIRIN 81 MG TAB PO (08:40)
[2017-11-18] MEDS: LISINOPRIL 5 MG TAB PO (08:41)
[2017-11-18] MEDS: SODIUM HYPOCHLORITE (1/40) 1 APPLIC BTL IRR ×2 (08:45→21:18)
[2017-11-18] MEDS: CIPROFLOXACIN HCL OTIC DROP 0.25 ML BOTH EARS ×2 (08:45→21:18)
[2017-11-18] MEDS: HYDROCODONE/APAP (5/325) TAB PO (14:56)
[2017-11-18] MEDS: ATORVASTATIN 20 MG TAB PO (21:18)
[2017-11-19] MEDS: HYDROmorphONE 2 MG/ML SYG IV ×6 (02:15→22:03)
[2017-11-19] MEDS: GABAPENTIN 100 MG CAP PO ×4 (06:01→23:22)
[2017-11-19] MEDS: CEPHALEXIN 500 MG CAP PO ×4 (06:01→23:22)
[2017-11-19] MEDS: PANTOPRAZOLE (EC) 40 MG TAB PO (06:01)
[2017-11-19] MEDS: BUDESONIDE (NEB) 0.5MG/2ML AMP INH ×2 (08:09→20:00)
[2017-11-19] MEDS: ASPIRIN 81 MG TAB PO (08:12)
[2017-11-19] MEDS: LISINOPRIL 5 MG TAB PO (08:12)
[2017-11-19] MEDS: CIPROFLOXACIN HCL OTIC DROP 0.25 ML BOTH EARS ×2 (08:12→20:01)
[2017-11-19] MEDS: QUETIAPINE 25 MG TAB PO ×2 (08:13→20:01)
[2017-11-19] MEDS: FLUOXETINE 20 MG CAP PO (08:15)
[2017-11-19] MEDS: SODIUM HYPOCHLORITE (1/40) 1 APPLIC BTL IRR ×2 (09:53→20:04)
[2017-11-19] MEDS: LORAZEPAM 2 MG INJ IV ×3 (09:59→23:22)
[2017-11-19] MEDS: ATORVASTATIN 20 MG TAB PO (20:01)
[2017-11-20] MEDS: HYDROmorphONE 2 MG/ML SYG IV ×7 (02:46→23:25)
[2017-11-20] MEDS: LORAZEPAM 2 MG INJ IV ×3 (04:56→20:07)
[2017-11-20] MEDS: PANTOPRAZOLE (EC) 40 MG TAB PO (05:00)
[2017-11-20] MEDS: CEPHALEXIN 500 MG CAP PO ×4 (05:00→23:02)
[2017-11-20] MEDS: GABAPENTIN 100 MG CAP PO ×4 (05:00→23:02)
[2017-11-20] MEDS: ASPIRIN 81 MG TAB PO (08:46)
[2017-11-20] MEDS: LISINOPRIL 5 MG TAB PO (08:46)
[2017-11-20] MEDS: QUETIAPINE 25 MG TAB PO ×2 (08:46→20:07)
[2017-11-20] MEDS: CIPROFLOXACIN HCL OTIC DROP 0.25 ML BOTH EARS ×2 (08:46→20:08)
[2017-11-20] MEDS: FLUOXETINE 20 MG CAP PO (08:46)
[2017-11-20] MEDS: SODIUM HYPOCHLORITE (1/40) 1 APPLIC BTL IRR ×2 (08:47→20:14)
[2017-11-20] MEDS: BUDESONIDE (NEB) 0.5MG/2ML AMP INH ×2 (09:20→20:52)
[2017-11-20] MEDS: LEVOFLOXACIN 500 MG TAB PO (15:00)
[2017-11-20] MEDS: ATORVASTATIN 20 MG TAB PO (20:07)
[2017-11-21] MEDS: HYDROmorphONE 2 MG/ML SYG IV ×5 (03:06→22:15)
[2017-11-21] MEDS: GABAPENTIN 100 MG CAP PO ×3 (06:15→17:44)
[2017-11-21] MEDS: PANTOPRAZOLE (EC) 40 MG TAB PO (06:15)
[2017-11-21] MEDS: LEVOFLOXACIN 500 MG TAB PO (06:15)
[2017-11-21] MEDS: LORAZEPAM 2 MG INJ IV ×3 (06:15→15:50)
[2017-11-21] MEDS: CEPHALEXIN 500 MG CAP PO ×3 (06:15→17:44)
[2017-11-21] MEDS: BUDESONIDE (NEB) 0.5MG/2ML AMP INH ×2 (08:47→19:47)
[2017-11-21] MEDS: CIPROFLOXACIN HCL OTIC DROP 0.25 ML BOTH EARS ×2 (09:18→20:17)
[2017-11-21] MEDS: LISINOPRIL 5 MG TAB PO (09:18)
[2017-11-21] MEDS: FLUOXETINE 20 MG CAP PO (09:18)
[2017-11-21] MEDS: ASPIRIN 81 MG TAB PO (09:18)
[2017-11-21] MEDS: QUETIAPINE 25 MG TAB PO ×2 (09:18→20:18)
[2017-11-21] MEDS: SODIUM HYPOCHLORITE (1/40) 1 APPLIC BTL IRR ×2 (09:21→20:17)
[2017-11-21] MEDS: IBUPROFEN 600 MG TAB PO (14:54)
[2017-11-21] MEDS: ATORVASTATIN 20 MG TAB PO (20:18)
[2017-11-22] MEDS: GABAPENTIN 100 MG CAP PO ×5 (00:20→23:57)
[2017-11-22] MEDS: CEPHALEXIN 500 MG CAP PO ×5 (00:20→23:57)
[2017-11-22] MEDS: HYDROmorphONE 2 MG/ML SYG IV ×6 (00:21→22:10)
[2017-11-22] MEDS: LORAZEPAM 2 MG INJ IV ×4 (00:49→19:36)
[2017-11-22] MEDS: LEVOFLOXACIN 500 MG TAB PO (06:00)
[2017-11-22] MEDS: PANTOPRAZOLE (EC) 40 MG TAB PO (06:00)
[2017-11-22] MEDS: ASPIRIN 81 MG TAB PO (07:56)
[2017-11-22] MEDS: CIPROFLOXACIN HCL OTIC DROP 0.25 ML BOTH EARS ×2 (07:56→21:00)
[2017-11-22] MEDS: FLUOXETINE 20 MG CAP PO (07:56)
[2017-11-22] MEDS: QUETIAPINE 25 MG TAB PO ×2 (07:57→22:09)
[2017-11-22] MEDS: LISINOPRIL 5 MG TAB PO (07:57)
[2017-11-22] MEDS: SODIUM HYPOCHLORITE (1/40) 1 APPLIC BTL IRR ×2 (07:58→21:00)
[2017-11-22] MEDS: BUDESONIDE (NEB) 0.5MG/2ML AMP INH ×2 (08:16→20:00)
[2017-11-22 14:12] LABS: ADD MAN DIFF? NO
[2017-11-22 14:13] LABS: WHITE BLOOD COUNT 11.2 10^3/ul (4.8-10.8)
[2017-11-22 14:13] LABS: BASOPHILS % 0.3 % (0.0-2.0); EOSINOPHILS # 0.5 10^3/ul (0.0-0.5); EOSINOPHILS % 4.6 % (0.0-7.0); HEMOGLOBIN 11.7 g/dl (14.0-18.0); LYMPHOCYTES # 1.7 10^3/ul (0.8-2.9); LYMPHOCYTES % 15.4 % (15.0-51.0); MEAN CORPUSCULAR HEMOGLOBIN 30.3 pg (29.0-33.0); MEAN CORPUSCULAR HGB CONC 32.5 g/dl (32.0-37.0); MEAN CORPUSCULAR VOLUME 93.3 fl (82.0-101.0); MONOCYTE # 1.2 10^3/ul (0.3-0.9); MONOCYTES % 10.5 % (0.0-11.0); NEUTROPHIL # 7.7 10^3/ul (1.6-7.5); NEUTROPHILS % 68.7 % (39.0-77.0); PLATELET COUNT 466 10^3/UL (140-415); RED BLOOD COUNT 3.86 10^6/ul (4.70-6.10); RED CELL DISTRIBUTION WIDTH 12.3 % (11.5-14.5)
[2017-11-22 14:50] LABS: ANION GAP 10 (8-16); BLOOD UREA NITROGEN 14 mg/dl (7-20); CALCIUM 9.5 mg/dl (8.4-10.2); CARBON DIOXIDE 27 mmol/L (21-31); CHLORIDE 110 mmol/L (97-110); CREATININE 0.85 mg/dl (0.61-1.24); GLUCOSE 120 mg/dl (70-220); POTASSIUM 3.9 mmol/L (3.5-5.1); SODIUM 143 mmol/L (135-144)
[2017-11-22] MEDS: ATORVASTATIN 20 MG TAB PO (21:00)
[2017-11-23] MEDS: LORAZEPAM 2 MG INJ IV ×4 (01:39→20:01)
[2017-11-23] MEDS: LEVOFLOXACIN 500 MG TAB PO (05:28)
[2017-11-23] MEDS: PANTOPRAZOLE (EC) 40 MG TAB PO (05:28)
[2017-11-23] MEDS: CEPHALEXIN 500 MG CAP PO ×3 (05:28→17:42)
[2017-11-23] MEDS: HYDROmorphONE 2 MG/ML SYG IV ×5 (05:29→21:51)
[2017-11-23] MEDS: GABAPENTIN 100 MG CAP PO ×3 (05:29→17:42)
[2017-11-23] MEDS: BUDESONIDE (NEB) 0.5MG/2ML AMP INH ×2 (07:52→20:16)
[2017-11-23] MEDS: ASPIRIN 81 MG TAB PO (08:08)
[2017-11-23] MEDS: FLUOXETINE 20 MG CAP PO (08:08)
[2017-11-23] MEDS: CIPROFLOXACIN HCL OTIC DROP 0.25 ML BOTH EARS ×2 (08:08→21:00)
[2017-11-23] MEDS: QUETIAPINE 25 MG TAB PO ×2 (08:09→21:54)
[2017-11-23] MEDS: SODIUM HYPOCHLORITE (1/40) 1 APPLIC BTL IRR ×2 (08:09→21:57)
[2017-11-23] MEDS: LISINOPRIL 5 MG TAB PO (08:19)
[2017-11-23 10:55] LABS: ADD MAN DIFF? NO
[2017-11-23 11:03] LABS: BASOPHILS % 0.4 % (0.0-2.0); EOSINOPHILS # 0.5 10^3/ul (0.0-0.5); EOSINOPHILS % 4.7 % (0.0-7.0); HEMATOCRIT 33.2 % (42.0-52.0); HEMOGLOBIN 10.8 g/dl (14.0-18.0); LYMPHOCYTES # 1.8 10^3/ul (0.8-2.9); LYMPHOCYTES % 18.8 % (15.0-51.0); MEAN CORPUSCULAR HEMOGLOBIN 30.3 pg (29.0-33.0); MEAN CORPUSCULAR HGB CONC 32.5 g/dl (32.0-37.0); MEAN PLATELET VOLUME 9.5 fl (7.4-10.4); MONOCYTE # 1.3 10^3/ul (0.3-0.9); NEUTROPHIL # 6.1 10^3/ul (1.6-7.5); NEUTROPHILS % 62.2 % (39.0-77.0); PLATELET COUNT 406 10^3/UL (140-415); RED BLOOD COUNT 3.57 10^6/ul (4.70-6.10); RED CELL DISTRIBUTION WIDTH 12.4 % (11.5-14.5)
[2017-11-23 11:03] LABS: WHITE BLOOD COUNT 9.8 10^3/ul (4.8-10.8)
[2017-11-23 11:18] LABS: ANION GAP 11 (8-16); BLOOD UREA NITROGEN 12 mg/dl (7-20); CARBON DIOXIDE 27 mmol/L (21-31); CHLORIDE 106 mmol/L (97-110); CREATININE 0.74 mg/dl (0.61-1.24); GLUCOSE 131 mg/dl (70-220); POTASSIUM 4.2 mmol/L (3.5-5.1); SODIUM 140 mmol/L (135-144)
[2017-11-23] MEDS: HYDROCODONE/APAP (5/325) TAB PO (16:18)
[2017-11-23] MEDS: ATORVASTATIN 20 MG TAB PO (21:54)
[2017-11-24] MEDS: HYDROmorphONE 2 MG/ML SYG IV ×6 (01:55→22:04)
[2017-11-24] MEDS: LORAZEPAM 2 MG INJ IV ×3 (04:07→20:02)
[2017-11-24] MEDS: GABAPENTIN 100 MG CAP PO ×5 (06:04→23:07)
[2017-11-24] MEDS: LEVOFLOXACIN 500 MG TAB PO (06:04)
[2017-11-24] MEDS: PANTOPRAZOLE (EC) 40 MG TAB PO (06:04)
[2017-11-24] MEDS: CEPHALEXIN 500 MG CAP PO ×5 (06:04→23:07)
[2017-11-24] MEDS: ASPIRIN 81 MG TAB PO (08:21)
[2017-11-24] MEDS: QUETIAPINE 25 MG TAB PO ×2 (08:21→20:02)
[2017-11-24] MEDS: CIPROFLOXACIN HCL OTIC DROP 0.25 ML BOTH EARS ×2 (08:21→20:02)
[2017-11-24] MEDS: FLUOXETINE 20 MG CAP PO (08:21)
[2017-11-24] MEDS: HYDROCODONE/APAP (5/325) TAB PO (08:22)
[2017-11-24] MEDS: LISINOPRIL 5 MG TAB PO (08:22)
[2017-11-24] MEDS: SODIUM HYPOCHLORITE (1/40) 1 APPLIC BTL IRR ×2 (08:23→20:06)
[2017-11-24] MEDS: BUDESONIDE (NEB) 0.5MG/2ML AMP INH ×2 (08:47→19:35)
[2017-11-24 10:34] LABS: ADD MAN DIFF? NO
[2017-11-24 10:40] LABS: BASOPHILS % 0.4 % (0.0-2.0); EOSINOPHILS # 0.4 10^3/ul (0.0-0.5); EOSINOPHILS % 4.1 % (0.0-7.0); HEMATOCRIT 34.8 % (42.0-52.0); HEMOGLOBIN 11.3 g/dl (14.0-18.0); LYMPHOCYTES # 2.1 10^3/ul (0.8-2.9); LYMPHOCYTES % 20.1 % (15.0-51.0); MEAN CORPUSCULAR HEMOGLOBIN 30.3 pg (29.0-33.0); MEAN CORPUSCULAR HGB CONC 32.5 g/dl (32.0-37.0); MEAN CORPUSCULAR VOLUME 93.3 fl (82.0-101.0); MEAN PLATELET VOLUME 9.2 fl (7.4-10.4); MONOCYTE # 1.1 10^3/ul (0.3-0.9); MONOCYTES % 10.7 % (0.0-11.0); NEUTROPHIL # 6.7 10^3/ul (1.6-7.5); NEUTROPHILS % 64.1 % (39.0-77.0); PLATELET COUNT 352 10^3/UL (140-415); RED BLOOD COUNT 3.73 10^6/ul (4.70-6.10); RED CELL DISTRIBUTION WIDTH 12.5 % (11.5-14.5)
[2017-11-24 10:40] LABS: WHITE BLOOD COUNT 10.5 10^3/ul (4.8-10.8)
[2017-11-24 11:02] LABS: ANION GAP 11 (8-16); BLOOD UREA NITROGEN 13 mg/dl (7-20); CALCIUM 9.2 mg/dl (8.4-10.2); CARBON DIOXIDE 29 mmol/L (21-31); CHLORIDE 104 mmol/L (97-110); CREATININE 0.89 mg/dl (0.61-1.24); GLUCOSE 123 mg/dl (70-220); POTASSIUM 4.2 mmol/L (3.5-5.1); SODIUM 140 mmol/L (135-144)
[2017-11-24] MEDS: ATORVASTATIN 20 MG TAB PO (20:02)
[2017-11-25] MEDS: HYDROmorphONE 2 MG/ML SYG IV ×6 (02:32→22:49)
[2017-11-25] MEDS: LORAZEPAM 2 MG INJ IV ×3 (04:11→20:19)
[2017-11-25] MEDS: GABAPENTIN 100 MG CAP PO ×3 (05:01→17:18)
[2017-11-25] MEDS: PANTOPRAZOLE (EC) 40 MG TAB PO (05:02)
[2017-11-25] MEDS: LEVOFLOXACIN 500 MG TAB PO (05:02)
[2017-11-25] MEDS: CEPHALEXIN 500 MG CAP PO ×3 (05:02→17:18)
[2017-11-25] MEDS: BUDESONIDE (NEB) 0.5MG/2ML AMP INH ×2 (08:45→20:00)
[2017-11-25] MEDS: QUETIAPINE 25 MG TAB PO ×2 (09:03→20:18)
[2017-11-25] MEDS: CIPROFLOXACIN HCL OTIC DROP 0.25 ML BOTH EARS ×2 (09:03→20:18)
[2017-11-25] MEDS: ASPIRIN 81 MG TAB PO (09:03)
[2017-11-25] MEDS: SODIUM HYPOCHLORITE (1/40) 1 APPLIC BTL IRR ×2 (09:04→20:18)
[2017-11-25] MEDS: LISINOPRIL 5 MG TAB PO (09:04)
[2017-11-25] MEDS: FLUOXETINE 20 MG CAP PO (09:07)
[2017-11-25] MEDS: HYDROCODONE/APAP (5/325) TAB PO (16:03)
[2017-11-25] MEDS: ATORVASTATIN 20 MG TAB PO (20:18)
[2017-11-26] MEDS: CEPHALEXIN 500 MG CAP PO ×4 (00:06→17:34)
[2017-11-26] MEDS: GABAPENTIN 100 MG CAP PO ×4 (00:06→17:35)
[2017-11-26] MEDS: HYDROmorphONE 2 MG/ML SYG IV ×5 (02:51→20:01)
[2017-11-26] MEDS: LORAZEPAM 2 MG INJ IV ×3 (04:47→20:57)
[2017-11-26] MEDS: PANTOPRAZOLE (EC) 40 MG TAB PO (05:40)
[2017-11-26] MEDS: LEVOFLOXACIN 500 MG TAB PO (05:40)
[2017-11-26] MEDS: BUDESONIDE (NEB) 0.5MG/2ML AMP INH ×2 (08:18→20:41)
[2017-11-26] MEDS: SODIUM HYPOCHLORITE (1/40) 1 APPLIC BTL IRR ×2 (09:00→20:12)
[2017-11-26] MEDS: CIPROFLOXACIN HCL OTIC DROP 0.25 ML BOTH EARS ×2 (09:00→20:12)
[2017-11-26] MEDS: LISINOPRIL 5 MG TAB PO (09:00)
[2017-11-26] MEDS: FLUOXETINE 20 MG CAP PO (09:00)
[2017-11-26] MEDS: ASPIRIN 81 MG TAB PO (09:00)
[2017-11-26] MEDS: QUETIAPINE 25 MG TAB PO ×2 (09:00→20:01)
[2017-11-26] MEDS: HYDROCODONE/APAP (5/325) TAB PO (17:38)
[2017-11-26] MEDS: ATORVASTATIN 20 MG TAB PO (20:01)
[2017-11-27] MEDS: HYDROmorphONE 2 MG/ML SYG IV ×6 (00:13→20:47)
[2017-11-27] MEDS: PANTOPRAZOLE (EC) 40 MG TAB PO (06:39)
[2017-11-27] MEDS: LORAZEPAM 2 MG INJ IV ×3 (06:39→19:56)
[2017-11-27] MEDS: LEVOFLOXACIN 500 MG TAB PO (06:39)
[2017-11-27] MEDS: GABAPENTIN 100 MG CAP PO ×4 (06:39→17:46)
[2017-11-27] MEDS: CEPHALEXIN 500 MG CAP PO ×2 (06:39)
[2017-11-27] MEDS: BUDESONIDE (NEB) 0.5MG/2ML AMP INH ×2 (08:00→20:24)
[2017-11-27] MEDS: CIPROFLOXACIN HCL OTIC DROP 0.25 ML BOTH EARS ×3 (08:19→20:01)
[2017-11-27] MEDS: ASPIRIN 81 MG TAB PO (08:20)
[2017-11-27] MEDS: QUETIAPINE 25 MG TAB PO ×2 (08:20→20:00)
[2017-11-27] MEDS: FLUOXETINE 20 MG CAP PO (08:20)
[2017-11-27] MEDS: LISINOPRIL 5 MG TAB PO (08:21)
[2017-11-27] MEDS: SODIUM HYPOCHLORITE (1/40) 1 APPLIC BTL IRR (08:30)
[2017-11-27] MEDS: SILVER SULFADIAZINE 1% 25 GM CR TOP ×2 (12:39→20:02)
[2017-11-27] MEDS: FUROSEMIDE 20 MG INJ IV (18:42)
[2017-11-27] MEDS: ATORVASTATIN 20 MG TAB PO (20:01)
[2017-11-28] MEDS: HYDROmorphONE 2 MG/ML SYG IV ×6 (00:38→21:01)
[2017-11-28] MEDS: LORAZEPAM 2 MG INJ IV ×4 (03:26→22:42)
[2017-11-28] MEDS: PANTOPRAZOLE (EC) 40 MG TAB PO (05:41)
[2017-11-28] MEDS: GABAPENTIN 100 MG CAP PO ×4 (05:41→17:59)
[2017-11-28] MEDS: CIPROFLOXACIN HCL OTIC DROP 0.25 ML BOTH EARS ×2 (08:59→20:59)
[2017-11-28] MEDS: QUETIAPINE 25 MG TAB PO ×2 (09:00→20:59)
[2017-11-28] MEDS: LISINOPRIL 5 MG TAB PO (09:00)
[2017-11-28] MEDS: BUDESONIDE (NEB) 0.5MG/2ML AMP INH ×2 (09:00→19:18)
[2017-11-28] MEDS: ASPIRIN 81 MG TAB PO (09:00)
[2017-11-28] MEDS: FLUOXETINE 20 MG CAP PO (09:00)
[2017-11-28] MEDS: SILVER SULFADIAZINE 1% 25 GM CR TOP ×2 (09:01→21:00)
[2017-11-28] MEDS: ATORVASTATIN 20 MG TAB PO (20:59)
[2017-11-28] MEDS: FUROSEMIDE 20 MG INJ IV (20:59)
[2017-11-29] MEDS: HYDROmorphONE 2 MG/ML SYG IV ×6 (01:04→21:48)
[2017-11-29] MEDS: SILVER SULFADIAZINE 1% 25 GM CR TOP ×3 (01:44→20:29)
[2017-11-29] MEDS: PANTOPRAZOLE (EC) 40 MG TAB PO (05:06)
[2017-11-29] MEDS: GABAPENTIN 100 MG CAP PO ×4 (05:06→17:30)
[2017-11-29] MEDS: LORAZEPAM 2 MG INJ IV ×3 (06:00→18:16)
[2017-11-29] MEDS: QUETIAPINE 25 MG TAB PO ×2 (08:00→20:28)
[2017-11-29] MEDS: LISINOPRIL 5 MG TAB PO (08:01)
[2017-11-29] MEDS: CIPROFLOXACIN HCL OTIC DROP 0.25 ML BOTH EARS ×3 (08:01→20:32)
[2017-11-29] MEDS: FLUOXETINE 20 MG CAP PO (08:01)
[2017-11-29] MEDS: ASPIRIN 81 MG TAB PO (08:01)
[2017-11-29] MEDS: BUDESONIDE (NEB) 0.5MG/2ML AMP INH ×2 (10:26→19:18)
[2017-11-29] MEDS: ATORVASTATIN 20 MG TAB PO (20:28)
[2017-11-30] MEDS: LORAZEPAM 2 MG INJ IV ×4 (00:40→23:51)
[2017-11-30] MEDS: GABAPENTIN 100 MG CAP PO ×5 (00:40→23:51)
[2017-11-30] MEDS: HYDROmorphONE 2 MG/ML SYG IV ×4 (01:41→19:42)
[2017-11-30] MEDS: HYDROCODONE/APAP (5/325) TAB PO (04:02)
[2017-11-30] MEDS: PANTOPRAZOLE (EC) 40 MG TAB PO (06:21)
[2017-11-30] MEDS: BUDESONIDE (NEB) 0.5MG/2ML AMP INH ×3 (08:16→19:12)
[2017-11-30] MEDS: FLUOXETINE 20 MG CAP PO (08:25)
[2017-11-30] MEDS: CIPROFLOXACIN HCL OTIC DROP 0.25 ML BOTH EARS ×2 (08:25→20:22)
[2017-11-30] MEDS: QUETIAPINE 25 MG TAB PO ×2 (08:25→20:22)
[2017-11-30] MEDS: ASPIRIN 81 MG TAB PO (08:25)
[2017-11-30] MEDS: LISINOPRIL 5 MG TAB PO (08:25)
[2017-11-30] MEDS: SILVER SULFADIAZINE 1% 25 GM CR TOP ×2 (08:29→20:26)
[2017-11-30] MEDS: ATORVASTATIN 20 MG TAB PO (20:25)
[2017-12-01] MEDS: HYDROmorphONE 2 MG/ML SYG IV ×6 (01:02→23:04)
[2017-12-01] MEDS: PANTOPRAZOLE (EC) 40 MG TAB PO (05:52)
[2017-12-01] MEDS: GABAPENTIN 100 MG CAP PO ×4 (05:53→23:04)
[2017-12-01] MEDS: LORAZEPAM 2 MG INJ IV ×2 (08:01→16:38)
[2017-12-01] MEDS: BUDESONIDE (NEB) 0.5MG/2ML AMP INH ×2 (08:41→20:30)
[2017-12-01] MEDS: FLUOXETINE 20 MG CAP PO (09:23)
[2017-12-01] MEDS: QUETIAPINE 25 MG TAB PO ×2 (09:23→20:18)
[2017-12-01] MEDS: SILVER SULFADIAZINE 1% 25 GM CR TOP ×2 (09:24→20:18)
[2017-12-01] MEDS: LISINOPRIL 5 MG TAB PO (09:24)
[2017-12-01] MEDS: ASPIRIN 81 MG TAB PO (09:24)
[2017-12-01] MEDS: CIPROFLOXACIN HCL OTIC DROP 0.25 ML BOTH EARS ×2 (09:24→20:19)
[2017-12-01] MEDS: ATORVASTATIN 20 MG TAB PO (20:17)
[2017-12-02] MEDS: LORAZEPAM 2 MG INJ IV ×4 (01:06→21:46)
[2017-12-02] MEDS: HYDROmorphONE 2 MG/ML SYG IV ×5 (02:55→20:05)
[2017-12-02] MEDS: PANTOPRAZOLE (EC) 40 MG TAB PO (06:49)
[2017-12-02] MEDS: GABAPENTIN 100 MG CAP PO ×3 (06:49→17:54)
[2017-12-02] MEDS: ASPIRIN 81 MG TAB PO (10:02)
[2017-12-02] MEDS: FLUOXETINE 20 MG CAP PO (10:02)
[2017-12-02] MEDS: QUETIAPINE 25 MG TAB PO ×2 (10:02→20:04)
[2017-12-02] MEDS: LISINOPRIL 5 MG TAB PO (10:02)
[2017-12-02] MEDS: CIPROFLOXACIN HCL OTIC DROP 0.25 ML BOTH EARS ×2 (10:02→21:00)
[2017-12-02] MEDS: SILVER SULFADIAZINE 1% 25 GM CR TOP ×2 (10:03→21:47)
[2017-12-02] MEDS: BUDESONIDE (NEB) 0.5MG/2ML AMP INH ×2 (13:00→20:40)
[2017-12-02] MEDS: HYDROCODONE/APAP (5/325) TAB PO (17:57)
[2017-12-02] MEDS: ATORVASTATIN 20 MG TAB PO (20:04)
[2017-12-03] MEDS: GABAPENTIN 100 MG CAP PO ×5 (00:02→23:37)
[2017-12-03] MEDS: HYDROmorphONE 2 MG/ML SYG IV ×6 (00:02→20:55)
[2017-12-03] MEDS: LORAZEPAM 2 MG INJ IV ×3 (02:04→20:04)
[2017-12-03] MEDS: PANTOPRAZOLE (EC) 40 MG TAB PO (06:00)
[2017-12-03 06:26] LABS: ADD MAN DIFF? NO
[2017-12-03 06:32] LABS: BASOPHILS % 0.3 % (0.0-2.0); EOSINOPHILS # 0.4 10^3/ul (0.0-0.5); EOSINOPHILS % 3.9 % (0.0-7.0); HEMATOCRIT 34.4 % (42.0-52.0); HEMOGLOBIN 11.1 g/dl (14.0-18.0); LYMPHOCYTES # 1.6 10^3/ul (0.8-2.9); MEAN CORPUSCULAR HGB CONC 32.3 g/dl (32.0-37.0); MEAN PLATELET VOLUME 9.2 fl (7.4-10.4); MONOCYTE # 1.1 10^3/ul (0.3-0.9); MONOCYTES % 10.7 % (0.0-11.0); NEUTROPHIL # 6.9 10^3/ul (1.6-7.5); NEUTROPHILS % 68.7 % (39.0-77.0); PLATELET COUNT 436 10^3/UL (140-415); RED CELL DISTRIBUTION WIDTH 12.3 % (11.5-14.5)
[2017-12-03 06:32] LABS: WHITE BLOOD COUNT 10.1 10^3/ul (4.8-10.8)
[2017-12-03 07:04] LABS: ANION GAP 8 (5-13); BLOOD UREA NITROGEN 12 mg/dl (7-20); CALCIUM 8.9 mg/dl (8.4-10.2); CARBON DIOXIDE 27 mmol/L (21-31); CHLORIDE 107 mmol/L (97-110); GLUCOSE 132 mg/dl (70-220); POTASSIUM 4.3 mmol/L (3.5-5.1); SODIUM 142 mmol/L (135-144)
[2017-12-03] MEDS: CIPROFLOXACIN HCL OTIC DROP 0.25 ML BOTH EARS ×3 (08:41→20:04)
[2017-12-03] MEDS: FLUOXETINE 20 MG CAP PO ×2 (08:42→08:58)
[2017-12-03] MEDS: QUETIAPINE 25 MG TAB PO ×3 (08:42→20:04)
[2017-12-03] MEDS: LISINOPRIL 5 MG TAB PO ×2 (08:42→08:58)
[2017-12-03] MEDS: ASPIRIN 81 MG TAB PO ×2 (08:43→08:58)
[2017-12-03] MEDS: SILVER SULFADIAZINE 1% 25 GM CR TOP ×3 (08:43→20:05)
[2017-12-03] MEDS: BUDESONIDE (NEB) 0.5MG/2ML AMP INH ×2 (09:00→19:37)
[2017-12-03] MEDS: ALBUTEROL HFA 8 GM INHALER INH (18:28)
[2017-12-03] MEDS: ATORVASTATIN 20 MG TAB PO (20:04)
[2017-12-04] MEDS: HYDROmorphONE 2 MG/ML SYG IV ×4 (00:55→13:28)
[2017-12-04] MEDS: LORAZEPAM 2 MG INJ IV ×2 (04:14→10:48)
[2017-12-04] MEDS: GABAPENTIN 100 MG CAP PO ×2 (05:28→13:27)
[2017-12-04] MEDS: PANTOPRAZOLE (EC) 40 MG TAB PO (05:28)
[2017-12-04] MEDS: BUDESONIDE (NEB) 0.5MG/2ML AMP INH (08:58)
[2017-12-04] MEDS: CIPROFLOXACIN HCL OTIC DROP 0.25 ML BOTH EARS (09:00)
[2017-12-04] MEDS: FLUOXETINE 20 MG CAP PO (09:26)
[2017-12-04] MEDS: ASPIRIN 81 MG TAB PO (09:27)
[2017-12-04] MEDS: QUETIAPINE 25 MG TAB PO (09:27)
[2017-12-04] MEDS: LISINOPRIL 5 MG TAB PO (09:27)
[2017-12-04] MEDS: SILVER SULFADIAZINE 1% 25 GM CR TOP (09:29)
== END 2017-12-04 15:57 | DRG 464 ==
LOC: PP2 10-06 18:10 → 5EC 10-25 01:35 → E/R 20:38 → PP2 10-01 00:16 → 5EC 10-25 04:09
PROC: 0JB90ZZ Excision of Buttock Subcutaneous Tissue and Fascia, Open Approach (ICD-10-PCS; principal; 2017-11-04 14:30)
PROC: 3E0U33Z Introduction of Anti-inflammatory into Joints, Percutaneous Approach (ICD-10-PCS; 2017-11-04 14:34)
PROC: 3E0U3BZ Introduction of Anesthetic Agent into Joints, Percutaneous Approach (ICD-10-PCS; 2017-11-04 14:34)
DX: M70.61 Trochanteric bursitis, right hip (principal); L05.01 Pilonidal cyst with abscess; I69.354 Hemiplegia and hemiparesis following cerebral infarction affecting left non-dominant side; Z68.42 Body mass index [BMI] 45.0-49.9, adult; I50.30 Unspecified diastolic (congestive) heart failure; F33.9 Major depressive disorder, recurrent, unspecified; M48.061 Spinal stenosis, lumbar region without neurogenic claudication; M16.11 Unilateral primary osteoarthritis, right hip; I11.0 Hypertensive heart disease with heart failure; Y93.89 Activity, other specified; Z91.81 History of falling; J44.9 Chronic obstructive pulmonary disease, unspecified; Z72.0 Tobacco use; Z99.3 Dependence on wheelchair; K60.3 Anal fistula; G47.33 Obstructive sleep apnea (adult) (pediatric); M48.07 Spinal stenosis, lumbosacral region; G54.4 Lumbosacral root disorders, not elsewhere classified; M51.16 Intervertebral disc disorders with radiculopathy, lumbar region; D72.829 Elevated white blood cell count, unspecified; M79.644 Pain in right finger(s); I50.9 Heart failure, unspecified; R33.9 Retention of urine, unspecified; R07.89 Other chest pain; R60.9 Edema, unspecified; B96.5 Pseudomonas (aeruginosa) (mallei) (pseudomallei) as the cause of diseases classified elsewhere; B96.20 Unspecified Escherichia coli [E. coli] as the cause of diseases classified elsewhere; B95.1 Streptococcus, group B, as the cause of diseases classified elsewhere; E66.01 Morbid (severe) obesity due to excess calories
CPT/HCPCS: 70250; 71045; 72131; 72170; 73130-RT; 73510; 76536; 78451; 78452; 80048; 80053; 80061; 83880; 84484; 85025; 85610; 85730; 87070; 87081; 88304; 93005; 93017; 93306; 93970; 94640; 94664; 96372; 97110; 97116; 97162; 97530; 99217; 99285-25